=== PATIENT | female | born 1955 | race Asian ===

== ENCOUNTER 2018-03-21 11:04 | Observation (INO) | payer MEDICAID, SELFPAY ==
[2018-03-21] VITALS (31 sets, daily range): BP systolic 94–119; BP diastolic 59–71; PULSE 46–76; RESP 7–26; TEMP 36.4–36.8; O2SAT 96–99
--- NOTE | 2018-03-21 11:14 | NUR.NOTE ---
pt has left sided chest pain radiating to left arm 5/10 pain pt describes as stabbing pain and nausea started at 0915
--- NOTE | 2018-03-21 11:19 | W.ED.GENAD ---
Discharge Plan Disposition Patient Disposition: HOME Condition: Good Discharge Details Chief Complaint: Chest Pain Clinical Impression: Chest pain Reason For Visit: CHEST PAIN Admit Date/Time: 03/21/18 17:53 Admit Provider: Luis Gruber Attending Provider: Nannette Palumbo Primary Care Provider: Bertha Hernandez ED Provider: Dewey Lopez Discharge Data Discharge Date/Time-TO BE ENTERED AT DEPARTURE: 03/21/18 19:05 Medical Decision Making <Janette Lopez MD - Last Filed: 04/04/18 08:37> Christine Snow is a 63-year-old woman with history of prediabetes and borderline hyperlipidemia presenting to the emergency department complaining of chest pain that began earlier today associated with nausea, left arm pain, now resolved. Pain occurred while she was cooking in her kitchen, but she did not feel that she was exerting herself at the time. On exam patient is very well and nontoxic appearing. Benign cardiopulmonary exam. Concern for ACS versus GERD versus muscular skeletal versus PE versus other. Exam/history of sepsis, acute aortic pathology. Plan for EKG, chest x-ray, screening labs, telemetry. Will monitor and reassess. Plan for repeat EKG and repeat troponin if initial workup negative. D-dimer elevated. Troponin negative. No clear etiology of pain at this time, plan for CT of the chest. Patient signed out to Dr. Dewey Lopez at time of shift change with repeat EKG, repeat troponin pending. Medical Records Medical records reviewed: Yes I reviewed the patient's medical records. Imaging Data Radiologic Study: Attestation: I personally reviewed and interpreted this imaging study as follows: Radiologist's impression: PA AND LATERAL CHEST: The cardiac and mediastinal contours have a normal appearance. The lungs are well inflated and clear. No infiltrate or effusion is seen. IMPRESSION: Negative chest xray. Lab Data Lab results reviewed: Yes I reviewed the patient's lab results. ECG Data Attestation: I personally reviewed and interpreted this ECG (s) as follows: Interpretation: EKG shows sinus rhythm 66, normal axis, slight T wave inversion in aVL, slight biphasic T wave V1, both changes present on prior 01/02, nondiagnostic EKG HPI <Janette Lopez MD - Last Filed: 04/04/18 08:37> General Mode of arrival: ambulatory. Date/Time Provider Initiated Documentation: 03/21/18 11:19. Limitations to Documentation: no limitations. Information obtained by: patient, RN notes reviewed and old records reviewed. HPI Narrative: Christine Snow is a 63-year-old woman without reported history of medical problems presenting to the emergency department complaining of chest pain. Patient reports that this morning she was cooking in her kitchen when she noticed pain in her left chest and left arm. Pain in her chest was stabbing, pain in her left arm began in her left wrist and moved to her left upper arm and was aching in nature, and did not otherwise radiate. Pain was not exertional or pleuritic. Did not improve with rest. SHe did have some nausea initially when pain began that has resolved. She reports that pain is subsided since being the emergency department, and she is currently not having chest pain. She reports that she took aspirin at home this morning. Did not take any other medications. Has been otherwise feeling well in her usual state of health, no recent illness. No fevers, shortness of breath, cough, vomiting, diarrhea, weakness, numbness. Has been eating and drinking as usual. Related Data Home Medications Medication Instructions Recorded Confirmed aspirin [Aspirin Low Dose] 81 mg PO DAILY #30 tab 03/21/18 Previous Rx's Medication Instructions Recorded aspirin [Aspirin Low Dose] 81 mg PO DAILY #30 tab 03/21/18 Allergies Allergy/AdvReac Type Severity Reaction Status Date / Time No Known Allergies Allergy Unverified 03/21/18 11:34 General Stated Complaint: Chest Pain NEREIDA: 2 Review of Systems <Janette Lopez MD - Last Filed: 04/04/18 08:37> Review of Systems Constitutional: denies fevers Eyes: denies eye pain ENT: denies facial pain, dental pain, sore throat Cardiovascular: reports chest pain, denies edema Respiratory: denies SOB, cough GI: denies abdominal pain, vomiting, diarrhea, reports nausea : denies flank pain MSK: denies back pain, neck pain, arthralgias, reports left arm pain Skin: denies rash Neuro: denies headaches, numbness, weakness PFSH <Janette Lopez MD - Last Filed: 04/04/18 08:37> Medical History Pre-diabetes (Chronic) Migraine Surgical History Biopsy of breast (~1999) Colonoscopy - IV Sedation (~2010) Family History Other Heart disease Hyperlipidemia Tuberculosis Social History number of children: 3 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 [place] Smoking and Tabacco status: Former Tobacco Use pack-years: 5 Tobacco: How many years used: 5 how long ago did patient quit smokin years History History 3 Para 3 Hx # Term Pregnancies 3 Multiple births Hx # Pregnancies Ectopic pregnancies AB induced Hx Number of Living Children AB spontaneous Exam <Janette Lopez MD - Last Filed: 04/04/18 08:37> Narrative Exam Narrative: Constitutional: well and [id number], pleasant, conversing normally HENT: head atraumatic, normocephalic normal inspection, mucous membranes moist Eyes: conjunctiva normal, sclera normal, pupils 3mm b/l Neck: no stridor, normal ROM, trachea midline Chest: normal inspection Resp: normal work of breathing, LCTAB Cardio: normal rate, normal rhythm, no murmur appreciated Back: normal inspection, no rash Skin: warm, dry, normal color, no rash Neuro: alert, not altered, grossly non-focal, normal tone Ext: no edema Psych: normal mood, normal affect, normal behavior Course <Janette Lopez MD - Last Filed: 04/04/18 08:37> Vital Signs Temperature 36.4 C L 03/21/18 11:16 Pulse 61 03/21/18 11:16 Respiratory Rate 14 03/21/18 11:16 Blood Pressure 119/70 03/21/18 11:16 Pulse Oximetry 98 03/21/18 11:16 Temperature 36.4 C L 03/21/18 11:16 Temperature Source Skin 03/21/18 11:16 Pulse 61 03/21/18 11:16 Respiratory Rate 14 03/21/18 11:16 Blood Pressure 119/70 03/21/18 11:16 Blood Pressure Position Sitting 03/21/18 11:16 Pulse Oximetry 98 02/04/19 11:16 Oxygen Delivery Method Room Air 03/21/18 11:16 Oxygen Flow Rate 0 03/21/18 11:16 Pain Level 5 03/21/18 11:16 Sign Out <Janette Lopez MD - Last Filed: 04/04/18 08:37> Sign Out Data: Sign Out Comment: Patient signed out to Dr. Lopez at time of shift change with repeat troponin, repeat EKG pending Last updated by Janette Lopez MD at 03/21/18 16:08 Post-Handoff Eval: -- CT chest intpereted by radiology: IMPRESSION: Negative chest CTA. No evidence of pulmonary emboli or other acute abnormality. 17:00 -- repeat trop at 3 hours neg and unchanged. 17:55 -- repeat ecg reviewed and interpreted by me: Concern for st changes noted V1 through V3 compared to prior. Patient reassessed and remains pain free. Plan to admit for serial troponin stress testing. I called and spoke with hospitalist who will admit patient - care transitioned to hospitalist. Disposition: inpatient observation Diagnosis: chest pain, ecg changes
[2018-03-21 11:52] LABS: Abs Immature Grans 0.01 k/cumm (0.0-0.09); Absolute Basophil Count 0.05 k/cumm (0.0-0.2); Absolute Eosinophil Count 0.11 k/cumm (0.0-0.7); Absolute Lymphocyte Count 1.64 k/cumm (1.2-3.4); Absolute Monocyte Count 0.32 k/cumm (0.11-0.7); Absolute Neutrophil Count 2.33 k/cumm (1.2-6.7); Basophils % 1.1; Eosinophils % 2.5; HGB 13.7 g/dL (12.0-15.5); Immature Grans % 0.2; Lymphocytes % 36.8; Mean Corp. HGB Concentration 33.4 g/dL (32.0-36.0); Mean Corpuscular Volume 89.7 fL (80-95); Monocytes % 7.2; Neutrophils % 52.2; Platelet Count 239 x1000/uL (130-400); RBC 4.57 m/cumm (4.00-5.20); RBC Distribution Width 12.2 % (11.7-14.6); White Blood Cell Count 4.46 k/cumm (4.4-10.8)
--- NOTE | 2018-03-21 12:08 | DI.RAD_ITS ---
SYMPTOM/DIAGNOSIS; CHEST PAIN PA AND LATERAL CHEST: Comparison is made with 13 Jan 2016. The heart size is normal. The aorta is mildly tortuous but normal in diameter. The lungs are well inflated and clear. No infiltrate or effusion is seen. There is no evidence of pneumothorax. IMPRESSION: Negative chest x-ray.
[2018-03-21 12:12] LABS: ALT 16 U/L (12-78); AST 18 U/L (15-37); Alkaline Phosphatase 68 U/L (46-116); Anion Gap 5.3 mmol/L (3-11); BUN 16 mg/dL (7-18); Bilirubin, Total 0.8 mg/dL (0.2-1.0); CO2 33.7 mmol/L (21.0-32.0); CREATININE 0.78 mg/dL (0.55-1.02); Calcium 9.5 mg/dL (8.5-10.1); Chloride 105 mmol/L (98-107); Glucose 87 mg/dL (70-100); Potassium 4.3 mmol/L (3.5-5.1); Sodium 144 mmol/L (136-145); Total Protein 7.9 g/dL (6.4-8.2)
[2018-03-21 12:36] LABS: D-Dimer 539 ng/mlFEU (<500)
[2018-03-21 13:00] LABS: Troponin I < 0.02 ng/mL (0.00-0.06)
--- NOTE | 2018-03-21 13:58 | DI.CT_ITS ---
SYMPTOM/DIAGNOSIS: CHEST PAIN PE CHEST CT: CT angiography was performed with multi slice acquisition and multi planar and 3D reconstruction. Comparison is made with plain films of the same day. The lungs show dependent changes. The aorta and pulmonary arteries are well opacified with IV contrast and no pulmonary emboli are seen. There is no evidence of aortic dissection. The visualized portions of the upper abdomen are unremarkable. IMPRESSION: Negative chest CTA. No evidence of pulmonary emboli or other acute abnormality.
[2018-03-21] MEDS: Omnipaque 350 MG/ML 100 ML BTL IJ (14:37)
[2018-03-21 16:22] LABS: Troponin I < 0.02 ng/mL (0.00-0.06)
[2018-03-21 20:26] LABS: Troponin I < 0.02 ng/mL (0.00-0.06)
[2018-03-21 21:00] LABS: ESR 9 MM/HR (0-30)
--- NOTE | 2018-03-21 21:25 | HPE_ITS ---
Date of service: 03/21/18 Time of Service: 21:23 Assessment and Plan (1) Chest pain: Current visit: Yes Status: Acute Atypical in nature and there is no associated with any exertional activity and no associated dyspnea. Serial troponins have been negative. EKG has some nonspecific ST-T wave changes. ESR came back normal. I suspect her chest pain is probably musculoskeletal in nature but because of multiple coronary risk factors she should have a follow-up stress gated exercise treadmill test with MPI imaging. 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 Says the work is been especially stressful and that she has to do more than cooking she often has to wash up dishes and take out trash and recyclables and do heavy lifting. She presented to the emergency department after developing left-sided chest discomfort and left arm heaviness and left shoulder and neck pain yesterday that recurred today while she was sitting and eating breakfast. There was no associated dyspnea. Today's episode occurred while she was eating breakfast and sitting at the table. She described as a heaviness in her left arm and an aching in the left side of her chest. There is no radiation up into her neck or jaw or into her right arm and there is no associated dyspnea. This morning's episode lasted for about 45 minutes beginning around 9:15 AM. When it subsided she called her primary care physician's office to make an appointment but when the discomfort recurred around 11 AM she decided to present to the emergency department. While in the emergency department she had multiple EKGs and serial troponin levels, CBC, CMP, d-dimer. Her d-dimer was within her age acceptable limit of 539. Her CMP and CBC were unremarkable. Her first 2 troponin levels were normal at less than 0.02 and since that time we have obtained a third troponin level that was also normal at less than 0.02. Initial EKG taken 11:22 AM showed normal sinus rhythm rate of 66 bpm. She has nonspecific T wave inversion in limb lead aVL but otherwise normal ECG. Repeat ECG was taken at 1737 this evening and again shows nonspecific T wave abnormality in limb lead aVL. However in the anterior precordial leads there is some slight J-point elevation and coving of the ST segment. T wave appears to be biphasic in V2 and V3. Although the patient has remained free of any chest pain Dr. Dewey Lopez advised the patient to be hospitalized overnight for a third troponin as well as to be set up for stress MPI. Patient has a previous history of chest pain that was worked up in December 2015 with a gated exercise treadmill stress test in which she achieved maximal heart rate of 152 bpm and had a normal resting blood pressure and normal blood pressure response to stress achieving 10.1 METS and showed no ischemic EKG changes. Her coronary risk factors include a family history in her father who had an IA at the age of 65 and had coronary stents but later from Alzheimer's dementia. She reports that she has been told she has prediabetes and borderline hypercholesterolemia. She does not have hypertension. She is a former smoker but quit 30 years ago after 5-year history of smoking. She is currently pain-free. 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 [place] Smoking/Tobacco Use Status: Former Tobacco Use pack-years: 5 how long ago did patient quit smokin years History History 3 Para 3 Hx # Term Pregnancies 3 Multiple births Hx # Pregnancies Ectopic pregnancies AB induced Hx Number of Living Children AB spontaneous Meds Home Medications Medication Instructions Recorded Confirmed Type aspirin [Aspirin Low Dose] 81 mg PO DAILY #30 tab 03/21/18 Rx Allergies Allergy/AdvReac Type Severity Reaction Status Date / Time No Known Allergies Allergy Unverified 03/21/18 11:34 Exam Const General: cooperative, healthy appearing, comfortable, no acute distress and well groomed Nutritional Appearance: thin Orientation: alert, awake and oriented x3 HENMT Head: normal to inspection, no palpable skull fracture, normocephalic and atraumatic Ears: hearing grossly normal bilaterally General nose exam: external nose normal Face and sinus: normal facial exam Mouth: oral mucosae normal, lip normal, tongue normal and oropharynx normal Teeth and gingiva: dentition normal Throat: posterior oropharynx normal Eyes General: appearance normal, both eyes and all related structures Visual Knight: normal visual knight by confrontation Alignment and Position: alignment normal Periorbital: periorbital findings normal Eyelids: eyelids normal Conjunctivae: conjunctivae normal Sclera: sclerae normal Cornea: corneas normal Pupils: PERRL EOM: EOM intact bilaterally Direct ophthalmoscopy: normal light reflex Neck Neck: normal visual inspection, full ROM, no lymphadenopathy and trachea midline Thyroid: thyroid normal Carotids: normal carotid upstroke Lymphatic: no lymphadenopathy noted Chest Chest: normal inspection of the chest and normal palpation of entire chest wall Resp Effort & Inspection: normal respiratory effort and able to speak in complete sentences Auscultation: clear to auscultation bilaterally Cardio Jugular venous pressure: no JVD Palpation: normal PMI Rate: regular rate Rhythm: regular rhythm Heart Sounds: S1 normal, S2 normal, normal, physiologic split S2 and murmur systolic early, soft and I/ Pulses: normal peripheral pulses GI Inspection: normal to inspection Palpation: soft, no hepatosplenomegaly and nontender Percussion: normal to percussion Auscultation: normal bowel sounds Back/Spine/Pelvis Back: no CVA tenderness Cervical Spine: normal cervical lordosis Thoracic/Lumbar Spine: thoracic and lumbar spine normal to inspection Skin General skin exam: no rashes or lesions noted Neuro General: alert, awake, oriented x3, moves all extremities and no focal motor deficits Cognition: normal cognition Speech: speech normal Motor: muscle tone normal throughout, strength 5/5 throughout and no movement abnormalities noted Sensory Exam: no sensory deficits noted Extrem General: normal to inspection, full ROM, normal capillary refill, no joint enlargement and no clubbing, cyanosis or edema Psych Appearance: grossly normal and well kempt Mental Status: mental status grossly normal Speech and Movement: speech and movement normal Mood: congruent mood Affect: normal affect Attitude: cooperative Thought Process: normal Thought Content: normal Insight: insight good Judgment: judgment good Results Imaging CT scan - chest: report reviewed (IMPRESSION: Negative chest CTA. No evidence of pulmonary emboli or other acute abnormality. [id number]: Total DLP = 0.00 mGy-cm Ordered By: Janette Lopez M.D. CC: Dictated By: Roro Nunez M.D. ) Labs : 03/21/18 11:30 03/21/18 11:30 Laboratory Results - last 24 hr 03/21/18 03/21/18 03/21/18 11:30 11:30 11:30 WBC 4.46 RBC 4.57 Hgb 13.7 Hct 41.0 MCV 89.7 MCH 30.0 MCHC 33.4 RDW 12.2 Plt Count 239 MPV 11.0 Immature Gran % 0.2 Neutrophils % 52.2 Lymphocytes % 36.8 Monocytes % 7.2 Eosinophils % 2.5 Basophils % 1.1 Absolute Neutrophils 2.33 Absolute Lymphocytes 1.64 Absolute Monocytes 0.32 Absolute Eosinophils 0.11 Absolute Basophils 0.05 ESR D-Dimer 539 H Sodium 144 Potassium 4.3 Chloride 105 Carbon Dioxide 33.7 H Anion Gap 5.3 BUN 16 Creatinine 0.78 Estimated GFR/1.73 m2 >= 60.00 Glucose 87 Calcium 9.5 Total Bilirubin 0.8 AST 18 ALT 16 Alkaline Phosphatase 68 Troponin I < 0.02 Total Protein 7.9 Albumin 4.0 03/21/18 03/21/18 03/21/18 15:47 20:00 20:00 WBC RBC Hgb Hct MCV MCH MCHC RDW Plt Count MPV Immature Gran % Neutrophils % Lymphocytes % Monocytes % Eosinophils % Basophils % Absolute Neutrophils Absolute Lymphocytes Absolute Monocytes Absolute Eosinophils Absolute Basophils ESR 9 D-Dimer Sodium Potassium Chloride Carbon Dioxide Anion Gap BUN Creatinine Estimated GFR/1.73 m2 Glucose Calcium Total Bilirubin AST ALT Alkaline Phosphatase Troponin I < 0.02 < 0.02 Total Protein Albumin Last Vital Signs Temp 36.8 C 03/21/18 19:14 Pulse 65 03/21/18 19:50 Resp 15 03/21/18 19:14 BP 116/71 03/21/18 19:14 Pulse Ox 98 03/21/18 19:14
[2018-03-22] VITALS (16 sets, daily range): BP systolic 86–107; BP diastolic 54–71; PULSE 52–76; RESP 16–18; TEMP 36–36.9; O2SAT 96–98
[2018-03-22 07:37] LABS: Cholesterol 219 mg/dL (50-200); HDL Cholesterol 100 mg/dL (40-60); LDL CHOLESTEROL 103 mg/dL (<100); Triglyceride 60 mg/dL (30-150)
--- NOTE | 2018-03-22 08:00 | PDOC.CMPRO ---
Care Management Progress Note 2/5-Stress test ordered from the emergency department. Patient is admitted. This CM notified Leatha, inpatient CM of the above.
[2018-03-22 08:30] LABS: Hemoglobin A1C 5.9 % (4.5-6.2)
--- NOTE | 2018-03-22 08:52 | PHARADMIT ---
Addendum entered by Dario Smith III 03/23/18 12:24: Pharmacy Note Subjective Objective VS-OK Lytes, SCr-OK , Plts-342 No BM Assessment Lovenox for DVT proph, Plan Stress test today, may go home after, if all checks out OK Original Note: Admission Pharmacy Clinical Review chest pain Code Status Full Code Current Weight 51.6 kg Renally Cleared and Narrow Therapeutic Index Meds Crcl ~51.02 mL/min current meds okay QTc Value / Action Taken QTc 445 BP Control, Fever BP 101/59 afebrile Electrolytes reviewed within normal limits DVT Prophylaxis none Opiate Usage / Scheduled Bowel Regimen Ordered no/prn Plt/SCr for Heparin / Enoxaparin plt 239 SCr 0.78 INR for Warfarin n/a H/H stable, WBC/Bands h/h 13.7/41.0 wbc 4.46 Antibiotic appropriateness n/a Cultures and Sensitivities n/a Surgical ABX d/c within 24 hr n/a DM control / Insulin Dosing BG 87 n/a Heart Failure (Check EF%) (ALLY's, B-Block, Diuretics) none IV to PO Switch n/a Home Meds Reviewed yes Home Meds Not Ordered aspirin Comments MPI tomorrow cardiology consult
--- NOTE | 2018-03-22 09:00 | MERGE_ITS ---
*[facility]* *[facility]* [address] [place] [address] Date of study: 03/22/2018 Transthoracic Echocardiography M-mode, complete 2D, complete spectral Doppler, and color Doppler *STUDY CONCLUSIONS* Summary: 1. Left ventricle: The cavity size was normal. Wall thickness was normal. Systolic function was normal. The estimated ejection fraction was 60-65%. Wall motion was normal; there were no regional wall motion abnormalities. 2. Right ventricle: The cavity size was normal. Systolic function was normal. 3. Inferior vena cava: The vessel was patent and normal in size. The respirophasic diameter changes were in the normal range (greater than or equal to 50%), consistent with normal central venous pressure. *PATIENT PRESENTATION* Height: 149.9cm ((59in) ) S/D Pressure: 101 / 59 Weight: 44.9kg ((98.8lb) ) BSA: 1.37m^2 Test start time: 09:10 AM. Test stop time: 10:00 AM. PERFORMING Unknown PERFORMING [facility] ORDERING Manpreet Gruber REFERRING Manpreet Gruber CONSULTING Bertha Hernandez DATA TRANSCRIBER RT Jamin Verde)(YUDITH)MORRIS *PROCEDURE DATA* Procedure information: The patient was identified by two identifiers. This study was interpreted by [facility]. Pertinent images and digital data are archived for permanent storage and are available for subsequent review. No prior study was available for comparison. Study status: Routine. Transthoracic echocardiography. M-mode, complete 2D, complete spectral Doppler, and color Doppler. A Transthoracic Echocardiogram was performed. Scanning was performed from the parasternal, apical, subcostal, and suprasternal notch acoustic windows. Images were obtained using an [id number] cardiac ultrasound machine. Image quality was adequate. Study completion: The patient tolerated the procedure well. There were no complications. History: PMH: Chest pain *CARDIAC ANATOMY* Left ventricle: The cavity size was normal. Wall thickness was normal. Systolic function was normal. The estimated ejection fraction was 60-65%. Wall motion was normal; there were no regional wall motion abnormalities. Aortic valve: Trileaflet; mildly thickened leaflets. Mobility was not restricted. Doppler: Transvalvular velocity was within the normal range. There was no stenosis. There was no significant regurgitation. VTI ratio of LVOT to aortic valve: 0.85. Valve area (VTI): 2.1cm^2. Indexed valve area (VTI): 1.6cm^2/m^2. Peak velocity ratio of LVOT to aortic valve: 0.76. Valve area (Vmax): 1.9cm^2. Indexed valve area (Vmax): 1.4cm^2/m^2. Mean velocity ratio of LVOT to aortic valve: 0.81. Valve area (Vmean): 2cm^2. Indexed valve area (Vmean): 1.5cm^2/m^2. Mean gradient (S): 4.5mm Hg. Peak gradient (S): 7.8mm Hg. Aorta: Aortic root: The aortic root was normal in size. Ascending aorta: The ascending aorta was normal in size. Mitral valve: Mildly thickened leaflets. Mobility was not restricted. Doppler: Transvalvular velocity was within the normal range. There was no evidence for stenosis. There was trivial regurgitation. Valve area by pressure half-time: 4.1cm^2. Indexed valve area by pressure half-time: 3cm^2/m^2. Peak gradient (D): 2.6mm Hg. Left atrium: The atrium was normal in size. Right ventricle: The cavity size was normal. Systolic function was normal. Pulmonic valve: The pulmonary valve appears to be grossly normal. Doppler: Transvalvular velocity was within the normal range. There was no evidence for stenosis. There was no significant regurgitation. Tricuspid valve: Structurally normal valve. Doppler: Transvalvular velocity was within the normal range. There was no evidence for stenosis. There was mild regurgitation. Pulmonary artery: The main pulmonary artery was normal-sized. Pulmonary systolic pressure was within the normal range, in the range of 20mm Hg to 25mm Hg. Right atrium: The atrium was normal in size. Pericardium: There was no pericardial effusion. Systemic veins: Inferior vena cava: Well visualized. The vessel was patent and normal in size. The respirophasic diameter changes were in the normal range (greater than or equal to 50%), consistent with normal central venous pressure. Baseline ECG: Normal sinus rhythm. Measurements Left ventricle Value Reference LV ID, ED, PLAX 3.9 cm 3.5 - 6.0 LV ID, ES, PLAX 2.7 cm 2.1 - 4.0 LV PW thickness, ED, PLAX 0.7 cm LV end-diastolic volume, 1-p A2C 46 ml LV ejection fraction, 1-p A2C 62 % LV end-diastolic volume, 1-p A4C 36 ml LV ejection fraction, 1-p A4C 63 % LV e', lateral 0.101 m/sec LV E/e', lateral 8 LV e', medial 0.081 m/sec LV E/e', medial 10 LV e', average 0.091 m/sec LV E/e', average 9 Ventricular septum Value Reference IVS thickness, ED, PLAX 0.9 cm LVOT Value Reference LVOT ID, A-P 1.8 cm LVOT area 2.5 cm^2 LVOT peak velocity, S 1.06 m/sec LVOT mean velocity, S 0.83 m/sec LVOT VTI, S 25.6 cm LVOT peak gradient, S 4.5 mm Hg LVOT mean gradient, S 2.9 mm Hg Stroke volume (SV), LVOT DP 64 ml Stroke index (SV/bsa), LVOT DP 47 ml/m^2 Aortic valve Value Reference Aortic valve peak velocity, S 1.4 m/sec Aortic valve mean velocity, S 1.02 m/sec Aortic valve VTI, S 30.0 cm Aortic mean gradient, S 4.5 mm Hg Aortic peak gradient, S 7.8 mm Hg VTI ratio, LVOT/AV 0.85 Aortic valve area, VTI 2.1 cm^2 Velocity ratio, peak, LVOT/AV 0.76 Aortic valve area, peak velocity 1.9 cm^2 Velocity ratio, mean, LVOT/AV 0.81 Aortic valve area, mean velocity 2 cm^2 Aortic valve area/bsa, mean velocity 1.5 cm^2/m^2 Aorta Value Reference Aortic root ID, ED 2.7 cm Ascending aorta ID, A-P, S 3.0 cm Left atrium Value Reference LA ID, A-P, ES 2.5 cm LA ID/bsa, A-P 1.8 cm/m^2 <=2.2 LA area, ES, A4C 14.4 cm^2 8.8 - 23.4 LA area, ES, A2C 9 cm^2 LA volume/bsa, ES, 1-p A4C 30 ml/m^2 LA volume, ES, 2-p 24 ml LA volume/bsa, ES, 2-p 18 ml/m^2 LA/aortic root ratio 0.92 Mitral valve Value Reference Mitral E-wave peak velocity 0.8 m/sec Mitral A-wave peak velocity 0.72 m/sec Mitral deceleration time 186 ms 150 - 230 Mitral pressure half-time 54 ms Mitral peak gradient, D 2.6 mm Hg Mitral E/A ratio, peak 1.12 Mitral valve area, PHT, DP 4.1 cm^2 Pulmonary veins Value Reference Pulmonary vein peak velocity, S 0.72 m/sec Pulmonary vein peak velocity, D 0.5 m/sec Pulmonary vein velocity ratio, peak, 1.43 S/D Pulmonary vein A-wave reversal peak 0.79 m/sec velocity Pulmonary vein A-wave reversal 204 ms duration Tricuspid valve Value Reference Tricuspid regurg peak velocity 2.2 m/sec Tricuspid peak RV-RA gradient 20.2 mm Hg Right atrium Value Reference RA area, ES, A4C 11 cm^2 8.3 - 19.5 Legend: (L) and (H) casa values outside specified reference range. I have personally reviewed the images and have reviewed and edited the reported findings. Electronically signed by Chrisitna Guy 03/22/2018 10:42
[2018-03-22 10:51] LABS: Anion Gap 7.8 mmol/L (3-11); BUN 20 mg/dL (7-18); CO2 28.2 mmol/L (21.0-32.0); CREATININE 0.69 mg/dL (0.55-1.02); Calcium 9.1 mg/dL (8.5-10.1); Chloride 106 mmol/L (98-107); Glucose 92 mg/dL (70-100); Magnesium 2.3 mg/dL (1.8-2.4); Potassium 4.3 mmol/L (3.5-5.1); Sodium 142 mmol/L (136-145)
--- NOTE | 2018-03-22 11:11 | INITIAL_ITS ---
- If Service Date Differs Date of service: 03/22/18 Time of Service: 11:11 Care Management Initial Assess REASON FOR HOSPITALIZATION:: Chest Pain PAST MEDICAL HISTORY/PAST SURGICAL HISTORY:: Chest pain, prediabetes PREVIOUS FUNCTIONAL STATUS/SOCIAL/FAMILY SUPPORTS:: Christine lives in [place], [place] she has 3 children two that live local and one that lives in [place]. 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 She is independent at baseline with ADL's and transportation. CURRENT FUNCTIONAL STATUS:: Christine makes good eye contact she is engaged with CM during assessment. She states she has been coming down with URI symptoms over the last few days, then developed the chest pain. She states she is no longer having chest pain and would like to go home so that she can work tomorrow. She is scheduled for an MPI CM to identify time for test. Patient states she needs to work tomorrow afternoon ADVANCE DIRECTIVES:: None on file at [facility] Has patient been provided with information about the portal?: Yes Did the patient sign up for the portal?: No CODE STATUS:: Full Code INSURANCE COVERAGE / FINANCIAL ISSUES:: Medicaid CURRENT HOME/COMMUNITY SERVICES/EQUIPMENT:: None at this time PRIMARY CARE PHYSICIAN:: Bertha Hernandez [facility] POTENTIAL DISCHARGE NEEDS:: Follow-up appointment scheduled with primary care, and cardiology if appropriate. PATIENT/FAMILY EDUCATION NEEDS:: Discharge education, limitations, follow-up plan of care, ask me 3 and self-management. ANTICIPATED BARRIERS TO DISCHARGE:: None identified at this time. TRANSPORTATION:: Via family at time of discharge. PLAN:: Christine is awaiting MPI in the morning. Anticipate she will be discharged home with no services when medically ready. Plan to follow up with primary care and cardiology if appropriate.
--- NOTE | 2018-03-22 13:42 | NUR.NOTE ---
Nursing Note: 1335: pt reporting pain in JOSE M similar to pain in arm yesterday which brought her to the ER. pt denies cp/p. see vs for intervention information
[2018-03-22] MEDS: Normal Saline 500 ML IV (14:40)
[2018-03-22] MEDS: Normal Saline Flush 10 ML SYR IVP (15:00)
--- NOTE | 2018-03-22 17:39 | W.PM.PROGNOT ---
Date of Service Date of service: 03/22/18 Time of Service: 15:00 Assessment and Plan (1) Chest pain: Current visit: Yes Status: Acute NPO for NST in am post-cardiology consult. (2) Pre-diabetes: Current visit: No Status: Chronic Consider metformin (3) Discharge planning issues: Current visit: Yes Status: Acute Full code Anticipated discharge home tomorrow if stress test normal. (4) DVT prophylaxis: Current visit: Yes Status: Acute Lovenox SC Subjective Interval history since last seen: Patient complained of a LUE ache/pain, from her L shoulder down her arm, which has improved over the last couple of hours, but is still there. She does not think that the nitroglycerin made it any better. Denies dizziness, actual chest pain today, shortness of breath, or nausea. Denies shoulder and neck pain. Denies numbness and tingling. C/o LUE heaviness. Exam Narrative Exam Narrative: General: very pleasant middle aged female, sitting up in bed, mildly anxious HEENT: EOMI, MMM Heart: RRR, no m/r/g Lungs: CTAB GI: abdomen soft, nontender, nondistended Extremities: no edema, clubbing or cyanosis; LUE/shoulder or neck are not TTP. Objective Objective Clinical Data: Abnormal lab results 03/22/18 03/22/18 Range/Units 06:21 06:21 BUN 20 H (7-18) mg/dL Total Cholesterol 219 H (50-200) mg/dL LDL Cholesterol Direct 103 H (<100) mg/dL HDL Cholesterol 100 H (40-60) mg/dL Vital Signs Temperature 36.5 C 03/22/18 15:30 Temperature Source Tympanic 03/22/18 15:30 Pulse 66 03/22/18 15:30 Pulse Rhythm Regular 03/22/18 16:00 Pulse 61 03/21/18 15:50 Respiratory Rate 18 03/22/18 15:30 Respiratory Effort Non-Labored 03/22/18 16:00 Respiratory Depth Normal 03/22/18 16:00 Respiratory Pattern Normal 03/22/18 16:00 Blood Pressure 100/70 03/22/18 15:30 Blood Pressure Mean 78 03/21/18 15:47 Blood Pressure Position Sitting 03/21/18 11:16 Pulse Oximetry 98 03/22/18 15:30 Oxygen Delivery Method Room Air 03/22/18 15:30 Oxygen Flow Rate 0 03/22/18 15:30 Fraction of Inspired Oxygen (FIO2) 3 03/22/18 15:30 Pain Level 5 03/22/18 14:05 Comment 03/22/18 15:30 Intake & Output 03/21/18 03/22/18 03/22/18 23:59 11:59 23:59 Intake Total 350 / 350 640 / 880 240 / 880 Output Total 500 / 500 1650 / 1650 Balance -150 / -150 -1010 / -770 240 / -770 Weight 45.359 kg 51.6 kg Intake: Oral 350 / 350 640 / 880 240 / 880 Output: Urine 500 / 500 1650 / 1650 Other: Urine Color Light Kaylie Yellow Urine Appearance Clear Clear Clear Urine Odor Normal Voiding Methods Toilet Toilet Laboratory Results WBC 4.46 k/cumm (4.4-10.8) 03/21/18 11:30 RBC 4.57 m/cumm (4.00-5.20) 03/21/18 11:30 Hgb 13.7 g/dL (12.0-15.5) 03/21/18 11:30 Hct 41.0 % (36.0-46.0) 03/21/18 11:30 MCV 89.7 fL (80-95) 03/21/18 11:30 MCH 30.0 pg (27.0-33.0) 03/21/18 11:30 MCHC 33.4 g/dL (32.0-36.0) 03/21/18 11:30 RDW 12.2 % (11.7-14.6) 03/21/18 11:30 Plt Count 239 x1000/uL (130-400) 03/21/18 11:30 MPV 11.0 fL (8.0-11.0) 03/21/18 11:30 Immature Gran % 0.2 03/21/18 11:30 Neutrophils % 52.2 03/21/18 11:30 Lymphocytes % 36.8 03/21/18 11:30 Monocytes % 7.2 03/21/18 11:30 Eosinophils % 2.5 03/21/18 11:30 Basophils % 1.1 03/21/18 11:30 Absolute Neutrophils 2.33 k/cumm (1.2-6.7) 03/21/18 11:30 Absolute Lymphocytes 1.64 k/cumm (1.2-3.4) 03/21/18 11:30 Absolute Monocytes 0.32 k/cumm (0.11-0.7) 03/21/18 11:30 Absolute Eosinophils 0.11 k/cumm (0.0-0.7) 03/21/18 11:30 Absolute Basophils 0.05 k/cumm (0.0-0.2) 03/21/18 11:30 ESR 9 MM/HR (0-30) 03/21/18 20:00 D-Dimer 539 ng/mlFEU (<500) H 03/21/18 11:30 Sodium 142 mmol/L (136-145) 03/22/18 06:21 Potassium 4.3 mmol/L (3.5-5.1) 03/22/18 06:21 Chloride 106 mmol/L (98-107) 03/22/18 06:21 Carbon Dioxide 28.2 mmol/L (21.0-32.0) 03/22/18 06:21 Anion Gap 7.8 mmol/L (3-11) 03/22/18 06:21 BUN 20 mg/dL (7-18) H 03/22/18 06:21 Creatinine 0.69 mg/dL (0.55-1.02) 03/22/18 06:21 Estimated GFR/1.73 m2 >= 60.00 (mL/min/1.73m2) 03/22/18 06:21 Glucose 92 mg/dL (70-100) 03/22/18 06:21 Hemoglobin A1c 5.9 % (4.5-6.2) 03/22/18 06:21 Calcium 9.1 mg/dL (8.5-10.1) 03/22/18 06:21 Magnesium 2.3 mg/dL (1.8-2.4) 03/22/18 06:21 Total Bilirubin 0.8 mg/dL (0.2-1.0) 03/21/18 11:30 AST 18 U/L (15-37) 03/21/18 11:30 ALT 16 U/L (12-78) 03/21/18 11:30 Alkaline Phosphatase 68 U/L (46-116) 03/21/18 11:30 Troponin I < 0.02 ng/mL (0.00-0.06) 03/21/18 20:00 Total Protein 7.9 g/dL (6.4-8.2) 03/21/18 11:30 Albumin 4.0 g/dL (3.4-5.0) 03/21/18 11:30 Triglycerides 60 mg/dL (30-150) 03/22/18 06:21 Total Cholesterol 219 mg/dL (50-200) H 03/22/18 06:21 LDL Cholesterol Direct 103 mg/dL (<100) H 03/22/18 06:21 HDL Cholesterol 100 mg/dL (40-60) H 03/22/18 06:21 TSH 1.10 uIU/mL (0.358-3.74) 03/22/18 06:21
[2018-03-22] MEDS: Enoxaparin 40 MG/0.4 ML SYR SC (18:42)
[2018-03-23] VITALS (7 sets, daily range): BP systolic 85–103; BP diastolic 51–75; PULSE 52–77; RESP 16–18; TEMP 36.5–37.1; O2SAT 96–97
[2018-03-23 07:18] LABS: Platelet Count 342 x1000/uL (130-400)
[2018-03-23 07:51] LABS: Anion Gap 6.2 mmol/L (3-11); BUN 21 mg/dL (7-18); CO2 29.8 mmol/L (21.0-32.0); CREATININE 0.71 mg/dL (0.55-1.02); Calcium 8.6 mg/dL (8.5-10.1); Chloride 107 mmol/L (98-107); Glucose 84 mg/dL (70-100); Magnesium 2.2 mg/dL (1.8-2.4); Potassium 3.8 mmol/L (3.5-5.1); Sodium 143 mmol/L (136-145)
--- NOTE | 2018-03-23 08:45 | MERGEMPI_ITS ---
*[facility]* *[facility]* [address] [place] [address] Myocardial Perfusion Imaging - SPECT Mahendra protocol Date of study: 03/23/2018 *PATIENT PRESENTATION* Height: 149.9cm (59in) Blood Pressure: Weight: 45.5kg (100lb) BSA: 1.38m^2 Referring physician: Manpreet Gruber Ordering physician: Manpreet Gruber Impressions: Normal myocardial perfusion and contraction after maximal exercise. Summary: 1. Myocardial perfusion imaging: No myocardial perfusion defects noted. 2. The calculated left ventricular ejection fraction after stress: > 75%. LV global systolic function is normal. No left ventricular regional motion abnormality. 3. Stress ECG conclusions: The stress ECG is negative. Butler treadmill score: 11. This score predicts a low risk of cardiac events. 4. Stress: The target heart rate was achieved. The heart rate response to stress is normal. There is a normal resting blood pressure with a blunted response to stress. Exercise capacity is above normal for age. 5. Treadmill exercise testing was performed using the Mahendra protocol. The patient exercised for 11 min, to protocol stage 3, to a maximal work rate of 8.9mets. Exercise was terminated due to fatigue. Indication: R07.9. History: REASON FOR TESTING: PATIENT PRESENTED TO THE ED 2/4/19 WITH LEFT SIDED CHEST ACHING (6/10) AND LEFT ARM HEAVINESS WITH BILATERAL NECK AND SHOULDER PAIN. HER TROPONINS WERE NEGATIVE. TODAY SHE REPORTS SLIGHT HEAVINESS OF HER LEFT ARM. SHE DENIES CHEST PAIN/PRESSURE. SMOKING STATUS: QUIT 1984. SMOKED APPROXIMATELY 5 CIGARETTES PER DAY FOR 5 YEARS. EXERCISE ROUTINE: DAILY ADLS. Risk factors: Family history of coronary artery disease. Dyslipidemia. ALLERGIES: NO KNOWN ALLERGIES. MEDICATIONS: NONE. Imaging Technique: Protocol: Mahendra protocol. Acquisition: Gated SPECT; 1 day - rest/stress. The patient was imaged in the supine position. Attenuation correction used. Isotope administration: - Rest. Tc[99m]-sestamibi. Dose: 10.3mCi. Injection time: 10:00 AM. Injection to stress time: 00:45. - Stress. Tc[99m]-sestamibi. Dose: 29mCi. Injection time: 10:55 AM. 1-2 min before end of exercise Baseline ECG: SINUS LANETTE. HR 53. T WAVE INVERSIONS IN AVL AND V1. Sinus bradycardia. Stress protocol: + +---+ + !Stage !HR !BP (mmHg) ! + +---+ + !Baseline supine !53 !110/70 (83)! + +---+ + !Baseline standing !64 !104/70 (81)! + +---+ + !Stage I; 1.7mph, 10degrees; 3 min !93 !110/64 (79)! + +---+ + !Stage II; 2.5mph, 12degrees; 3 min !118!110/80 (90)! + +---+ + !Stage III; 3.4mph, 14degrees; 3 min!138!110/80 (90)! + +---+ + !Peak stress !140! ! + +---+ + !Recovery; 1 min !119!118/68 (85)! + +---+ + !Recovery; 3 min !67 !108/64 (79)! + +---+ + !Recovery; 6 min !65 !98/64 (75) ! + +---+ + * Stress results: TREADMILL PORTION OF STRESS TEST ENDED IN 11 MINUTES 3 SECONDS DUE TO FATIGUE. PT WAS UNABLE TO SAFELY TRANSITION TO STAGE 3 EXERCISE. MAHENDRA PROTOCOL WAS MODIFIED TO ACCOMMODATE. STAGE 3, SPEED 3 MPH AT 6 MINUTES 55 SECONDS. STAGE 3, INCLINE 13% GRADE AT 8 MINUTES 32 SECONDS. STAGE 3, INCLINE 13.5% GRADE AT 8 MINUTES 55 SECONDS. STAGE 3, INCLINE 14% GRADE AT 9 MINUTES 39 SECONDS. NORMAL HEART RATE AND BLOOD PRESSURE RESPONSE TO EXERCISE. MAX HEART RATE: 140. 89 % OF TARGET HEART RATE. MET'S: 8.91. OCCASIONAL PAC'S IN RECOVERY. NO ANGINA NO SIGNIFICANT ST SEGMENT CHANGES. FUNCTIONAL CAPACITY: ABOVE AVERAGE (MODIFIED MAHENDRA). Maximal heart rate during stress was 140bpm (90% of maximal predicted heart rate). The maximal predicted heart rate was 156bpm. The target heart rate was achieved. The heart rate response to stress is normal. There is a normal resting blood pressure with a blunted response to stress. The rate-pressure product for the peak heart rate and blood pressure was 96465xx Hg/min. Exercise capacity is above normal for age. Stress ECG: The stress ECG is negative. Butler treadmill score: 11. This score predicts a low risk of cardiac events. Myocardial perfusion: Imaging information: gated. The image quality was excellent. Left ventricular size is normal. No myocardial perfusion defects noted. Ventricular Function (Wall Motion): The calculated left ventricular ejection fraction after stress: > 75%. LV global systolic function is normal. No left ventricular regional motion abnormality. Study data: Aleksandar Warner MD supervised and was readily available during the procedure. This study was interpreted by [facility]. Study status: Routine. Consent: The risks, benefits, and alternatives to the procedure were explained to the patient and informed consent was obtained. Procedure: Initial setup. A baseline ECG was recorded. Surface ECG leads and manual cuff blood pressure measurements were monitored. Heart sounds: Normal. Lung sounds: Normal. Treadmill exercise testing was performed using the Mahendra protocol. The patient exercised for 11 min, to protocol stage 3, to a maximal work rate of 8.9mets. Exercise was terminated due to fatigue. Study completion: All catheters inserted during the procedure were removed. The patient tolerated the procedure well and was discharged from the lab. Discharge: The patient left the laboratory in stable condition. Birthdate: Patient birthdate: 1955. Sex: Gender: female. Study date: Study date: 03/23/2018. Study time: 00:01 AM. Signature Documentation: - The imaging portion of this study was interpreted by [employer] Machine Operator Aleksandar Warner MD. - The Stress ECG portion of this study was interpreted by Aleksandar Warner MD. Electronically signed by Aleksandar Warner 03/23/2018 13:44
--- NOTE | 2018-03-23 13:46 | W.PM.DS.N ---
Date of service: 03/23/18 Time of Service: 13:47 DS: Diagnosis Discharge Diagnosis (1) Chest pain: Status: Acute (2) Pre-diabetes: Status: Chronic (3) Discharge planning issues: Status: Acute (4) DVT prophylaxis: Status: Acute Discharge Plan Disposition Patient Disposition: HOME Condition: Good Discharge Details Reason For Visit: CHEST PAIN Admit Date/Time: 03/21/18 17:53 Admit Provider: Lusi Gruber Attending Provider: Luis Gruber Primary Care Provider: Bertha Hernandez Hospital Course Hospital Course: Christine Snow is a 63 year old female with no significant past medical history who presented to the [facility] ED on 03/21/18 with reports of left-sided chest discomfort, left arm heaviness and left shoulder and neck pain that occurred at rest. While in the emergency department she had multiple EKGs and serial troponin levels, CBC, CMP, d-dimer. Her d-dimer was within her age acceptable limit of 539. She had a chest CTA which was negative, no evidence of pulmonary emboli or other acute abnormality. Her CMP and CBC were unremarkable. Her troponin levels were all less than 0.02. She had some nonspecific ST changes on EKG. She reported a past medical history of prediabetes and borderline hyperlipidemia. She has a family history of heart disease, her father had an OR. She had a previous exercise stress test which was normal in 2016. She was admitted to the [facility] floor for further observation, monitoring on telemetry and a stress test. She went on to have an echocardiogram which was normal with an LVEF of 60-65%, no wall motion abnormalities. She was monitored on telemetry, she was noted to be in sinus bradycardia with heart rates primarily 50s-60s, her heart rate went as low as 47 overnight. 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 She went on to have an MPI which showed normal myocardial perfusion and contraction after maximal exercise, with low risk of cardiac events. She is now discharged home, she denies chest pain/pressure, palpitations, nausea, vomiting. She is eager to get back to work. Her left arm pain has completely resolved. She will continue to take her low-dose aspirin. She will follow-up with her primary care provider as scheduled. Home Meds and New Rx's Prescriptions: New aspirin [Aspirin Low Dose] 81 mg tablet,delayed release (DR/EC) 81 mg PO DAILY Qty: 30 RF: 0 Discharge Instructions Instructions: Chest Pain (ED) Additional Instructions: Take aspirin 81 mg daily. You may return to work as tolerated. Follow-up with your primary care provider as scheduled. Take care! Referrals: Bertha Hernandez [Primary Care Provider] - 03/30/18 11:30 am () Activity:: Activity as Tolerated Equipment/Supplies:: No Equipment Needed Diet:: As Tolerated Discharge Orders Discharge Orders: Discharge Order (Routine); Ordered 03/23/18 Ordered By: Martha Nance Exam Narrative Exam Narrative: General: very pleasant middle aged female, sitting up in bed, no acute distress. HEENT: Normocephalic, atraumatic, pupils equal and round, mucous membranes moist. Heart: Heart has regular rate and rhythm, no murmur appreciated. Lungs: Respirations even and unlabored, lung sounds clear to auscultation throughout. GI: abdomen soft, nontender, nondistended Extremities: no edema, clubbing or cyanosis DS: Data Vitals/I&O Vitals and I&O: Vital Signs Temperature 37.0 C 03/23/18 11:52 Temperature Source Tympanic 03/23/18 11:52 Pulse 63 03/23/18 11:52 Pulse Rhythm Regular 03/23/18 08:44 Pulse 61 03/21/18 15:50 Respiratory Rate 18 03/23/18 11:52 Respiratory Effort Non-Labored 03/23/18 08:44 Respiratory Depth Normal 03/23/18 08:44 Respiratory Pattern Normal 03/23/18 08:44 Blood Pressure 99/65 L 03/23/18 11:52 Blood Pressure Mean 78 03/21/18 15:47 Blood Pressure Position Sitting 03/21/18 11:16 Pulse Oximetry 96 03/23/18 11:52 Oxygen Delivery Method Room Air 03/23/18 11:52 Oxygen Flow Rate 0 03/23/18 11:52 Fraction of Inspired Oxygen (FIO2) 3 03/22/18 15:30 Pain Level 0 03/23/18 03:25 Comment 03/22/18 19:14 Intake & Output 03/22/18 03/23/18 03/23/18 23:59 11:59 23:59 Intake Total 1580 / 2220 Output Total 1600 / 3250 Balance -20 / -1030 Intake: IV 500 / 500 Oral 1080 / 1720 Output: Urine 1600 / 3250 Other: Urine Color Pale Urine Appearance Clear Urine Odor Normal Voiding Methods Toilet Completed studies during hospitalization [Text1]: 03/21/2018: PA AND LATERAL CHEST: Comparison is made with 13 Jan 2016. The heart size is normal. The aorta is mildly tortuous but normal in diameter. The lungs are well inflated and clear. No infiltrate or effusion is seen. There is no evidence of pneumothorax. IMPRESSION: Negative chest x-ray. PE CHEST CT: CT angiography was performed with multi slice acquisition and multi planar and 3D reconstruction. Comparison is made with plain films of the same day. The lungs show dependent changes. The aorta and pulmonary arteries are well opacified with IV contrast and no pulmonary emboli are seen. There is no evidence of aortic dissection. The visualized portions of the upper abdomen are unremarkable. IMPRESSION: Negative chest CTA. No evidence of pulmonary emboli or other acute abnormality. 03/22/2018: Summary: 1. Left ventricle: The cavity size was normal. Wall thickness was normal. Systolic function was normal. The estimated ejection fraction was 60-65%. Wall motion was normal; there were no regional wall motion abnormalities. 2. Right ventricle: The cavity size was normal. Systolic function was normal. 3. Inferior vena cava: The vessel was patent and normal in size. The respirophasic diameter changes were in the normal range (greater than or equal to 50%), consistent with normal central venous pressure. 03/23/2018: Impressions: Normal myocardial perfusion and contraction after maximal exercise. Summary: 1. Myocardial perfusion imaging: No myocardial perfusion defects noted. 2. The calculated left ventricular ejection fraction after stress: > 75%. LV global systolic function is normal. No left ventricular regional motion abnormality. 3. Stress ECG conclusions: The stress ECG is negative. Butler treadmill score: 11. This score predicts a low risk of cardiac events. 4. Stress: The target heart rate was achieved. The heart rate response to stress is normal. There is a normal resting blood pressure with a blunted response to stress. Exercise capacity is above normal for age. 5. Treadmill exercise testing was performed using the Mahendra protocol. The patient exercised for 11 min, to protocol stage 3, to a maximal work rate of 8.9mets. Exercise was terminated due to fatigue. Labs on day of discharge: Labs from last 24 hours 03/23/18 03/23/18 06:15 06:15 Plt Count 342 D Sodium 143 Potassium 3.8 Chloride 107 Carbon Dioxide 29.8 Anion Gap 6.2 BUN 21 H Creatinine 0.71 Estimated GFR/1.73 m2 >= 60.00 Glucose 84 Calcium 8.6 Magnesium 2.2 PFSH Medical History Pre-diabetes (Chronic) Migraine Surgical History Biopsy of breast (~1999) Colonoscopy - IV Sedation (~2010) Family History Other Heart disease Hyperlipidemia Tuberculosis Social History number of children: 3 current occupation: [employer] in [place] Smoking/Tobacco Use Status: Former Tobacco Use pack-years: 5 how long ago did patient quit smokin years History History 3 Para 3 Hx # Term Pregnancies 3 Multiple births Hx # Pregnancies Ectopic pregnancies AB induced Hx Number of Living Children AB spontaneous
--- NOTE | 2018-03-23 16:25 | CHAPLAIN ---
Christine was very pleasant when I visited with her. 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
--- NOTE | 2018-03-23 17:09 | PDOC.CMDIS ---
- If Service Date Differs Date of service: 03/23/18 Time of Service: 17:10 LACE Index Scoring Tool - Questions: Length of Stay (in days): 2 Acuity (Admit via E.D.?): Yes Comorbidities: Diabetes w/o Complication E.D. Visits: 1 - Answers: Total Score: 7 Risk of Readmission: Low Risk Care Management Discharge Reason for Hospitalization: Chest Pain Discharge Plan: Christine is being discharged home today follow-up with primary care. No services needed at time of discharge. She was started on low-dose aspirin and she has a scheduled appointment with her provider on 03/30/2018. Patient/Family Education Needs: Discharge education, limitations, follow-up plan of care, asked me 3 and self-management.
== END 2018-03-23 16:20 | disposition home or self-care (01) ==
LOC: ER 17:11 → MS 19:07
PROVIDERS: Student in an Organized Health Care Education/Training Program; Admitting Provider Internal Medicine; Emergency Provider Student in an Organized Health Care Education/Training Program; PCP Nurse Practitioner; Visit Provider Internal Medicine
DX: R07.9 Chest pain, unspecified (principal); R73.03 Prediabetes; R94.31 Abnormal electrocardiogram [ECG] [EKG]; Z82.49 Family history of ischemic heart disease and other diseases of the circulatory system
CPT/HCPCS: 36415; 71275; 78452; 80048; 80053; 80061; 83721; 85652; 93005; 99219; 99231; 99239; 99285; J1650; 71046; 83036; 83735; 84443; 84484; 85025; 85049; 85379; 93010; 93017; 93306; 99224; G0378; J3490

== ENCOUNTER 2018-08-15 12:00 | Day surgery (SDC) | payer MEDICAID, SELFPAY ==
--- NOTE | 2018-08-15 06:49 | COLE_ITS ---
Date of service: 08/15/18 Time of Service: 13:14 Colonoscopy Report Date of procedure: 08/15/18 Pre-op diagnosis general: Colon Cancer Screening Post-op diagnosis procedure note: other (2 polyps) Procedure: Colonoscopy with cold forceps Surgeon: Lulu Navarro Anesthesia proc note operative: other (General/ ASA 2/Pollo Burks CRNA ) Estimated blood loss (mL): 3 Pathology: other (descending and sigmoid colon polyp) Complications: None Disposition: same day Indications: Mrs. Snow is a pleasant 63 year old female who was seen in the office for a follow-up colonoscopy. Her last colonoscopy was approximately 10 years ago in [facility]. Per the patient it was normal. She has no family history of colon cancer that she is aware of. Risks, benefits and complications have been reviewed. Complications include but are not limited to bleeding, pain, perforation, missed small lesion/polyp, sore throat, aspiration and adverse reaction to the medications. Questions were entertained and answered to their satisfaction and they wished to proceed. No guarantees were given or implied. Prep: Miralax/Dulcolax Procedure Start Time: 13:14 Procedure End Time: 13:38 Retraction Time: 15 Findings: 2 small, benign appearing polyps. Procedure Description: After informed consent was obtained the patient was taken to the procedure room and placed in a left decubitous position. Monitors were applied and a time out was done. The patients name, date of , procedure, allergies to medications and metal in their body was reviewed. The patient was then sedated. Once sedated and comfortable a rectal exam was done. External exam was normal. Internal exam revealed a normal sphincter tone and no palpable masses. The scope was then introduced and retro-flexed. No internal hemorrhoids were identified. The scope was then advanced to the cecum without difficulty. The TI and appendiceal orifice were identified. The prep was adequate. The scope was then slowly retracted over 15 minutes back into the rectum. Polyps were removed with cold forceps in the descending and sigmoid colon. The scope was removed and the patient was woken up and taken back to Same day surgery in stable condition. The patient tolerated the procedure well and there were no immediate complications. Follow up: The patient should follow up in 10 years unless the polyps come back as pre-malignant or they develop changes in bowel habits or other new gas trointestinal complaints.
--- NOTE | 2018-08-15 06:50 | W.PM.DSUDISC ---
Discharge Plan Disposition Patient Disposition: HOME Condition: Good Discharge Details Reason For Visit: Colonoscopy Attending Provider: Lulu Navarro Primary Care Provider: Bertha Hernandez Home Meds and New Rx's Prescriptions: Continued omega-3 fatty acids [Fish Oil Concentrate] 1,000 mg capsule 1,000 mg PO DAILY RF: 0 Discontinued bisacodyl [Dulcolax (bisacodyl)] 5 mg tablet,delayed release (DR/EC) 5 mg PO ONCE Qty: 4 RF: 0 polyethylene glycol 3350 17 gram powder in packet 255 g PO DAILY Qty: 15 RF: 0 Discharge Instructions Instructions: Colonoscopy (DC), Colorectal Polyps (DC) Additional Instructions: Findings: 2 small benign appearing polyps Follow up: 10 years most likely Please call if you develop: fevers >101.5 Nausea or Vomiting Abdominal pain that is not transient DAY SURGERY UNIT POST COLONOSCOPY INSTRUCTIONS 1. Because there will be medication in your system for the next 24 hours, you may feel a little sleepy. Your coordination will be affected. Therefore: a. Do not drive or operate dangerous equipment for 24 hours. b. Do not drink alcohol beverages for 24 hours (not even beer). c. Plan to go home and rest for the day. 2. Generally there are no restrictions on your activity after a day or so has gone by, but you may feel a bit fatigued for a few days. 3 After you arrive home you may have a light meal and return to a normal diet as you can tolerate it without feeling sick to your stomach. 4. After surgery, you may feel pain or discomfort. This should be only transient, but if it persists please contact your doctor. 5. If there are any questions regarding the findings of your procedure, please feel free to contact your doctor. 6. If you are unable to contact your doctor with a problem, contact the hospital at [phone]. 7. Continue all your regular medications unless directed otherwise. I understand the above instructions and have no questions. Signature of Patient or Responsible Adult Escort Date/Time Name of Responsible Adult Escort Signature of Nurse Date/Time Activity:: Activity as Tolerated Diet:: As Tolerated Discharge Orders Discharge Orders: Discharge Order (Routine); Ordered 08/15/18 Ordered By: Lulu Navarro DS: Diagnosis Discharge Diagnosis (1) S/P colonoscopy: Status: Acute (2) Colorectal polyps: Status: Acute
[2018-08-15 12:33] VITALS: BP 101/70; PULSE 81; RESP 16; TEMP 36.8; O2SAT 95
[2018-08-15] MEDS: Lactated Ringers 1,000 ML 80 ML IV (12:45)
--- NOTE | 2018-08-15 13:36 | BOWEL_PTH ---
PATIENT: Christine Snow LOC: [facility] U#:[id number] AGE/SX: 63/F ROOM: RE08/15/[address]: Lulu Navarro MD : [id number] BED: DIS: 08/15/2018 SPEC #: [id number] RECD: 08/15/18 17:06 STATUS: GERMAIN RE #: [id number] MARIS: 08/15/18 13:[address]: Lulu Navarro DEPT: Surgical Specimen RECD BY: Sharla Rausch ENTERED: 08/15/18 17:07 SP TYPE: Bowel OTHR DR: Bertha Hernandez Tissues: 1 - BIOPSY BOWEL 2 - BIOPSY BOWEL Procedures: GROSS AND MICRO LEVEL 4 Comments: [id number]
[2018-08-15 14:10] VITALS: BP 128/63; PULSE 67; RESP 18; TEMP 36.1; O2SAT 100
== END 2018-08-15 15:07 | disposition home or self-care (01) ==
LOC: SUR 12:00
PROVIDERS: PCP Nurse Practitioner; Visit Provider Surgery
PROC: 0DJD8ZZ Inspection of Lower Intestinal Tract, Via Natural or Artificial Opening Endoscopic (ICD-10-PCS; CPT 45378; principal; 2018-08-15 12:15)
DX: Z12.11 Encounter for screening for malignant neoplasm of colon (principal); K63.5 Polyp of colon
CPT/HCPCS: 45380; 88305

== ENCOUNTER 2018-09-04 15:40 | Emergency (ER) | payer MEDICAID, SELFPAY ==
[2018-09-04 15:46] VITALS: BP 136/79; PULSE 69; RESP 16; TEMP 36.7; O2SAT 99
--- NOTE | 2018-09-04 16:14 | ED.GENADUL_ITS ---
Discharge Plan Disposition Patient Disposition: HOME Condition: Fair Discharge Details Chief Complaint: Headache Clinical Impression: Headache Primary Care Provider: Bertha Hernandez ED Provider: Kailyn Oden Home Meds and New Rx's Prescriptions: No Action No Known Home Meds RF: 0 Discharge Instructions Instructions: General Headache (ED) Additional Instructions: Your laboratory evaluation and imaging are reassuring today. Please continue to encourage hydration. You may use Tylenol and ibuprofen as needed for discomfort. If you develop increased pain, fever/chills, change in your vision, weakness, sensation changes or other new/worsening symptoms please seek care urgently once again. Otherwise, please follow-up with your primary care within the next week for reevaluation. Referrals: Bertha Hernandez [Primary Care Provider] - Discharge Data Discharge Date/Time-TO BE ENTERED AT DEPARTURE: 09/04/18 19:15 Medical Decision Making Patient is 63-year-old female with history of migraines presenting today with chief complaint of headache. She reports a headache began several hours ago. States the headache has been intermittent. Believes it was worse than her typical associated with the heat. Patient reports that she typically gets about 3 migraines a year and does not typically take any medication for this. Was taking ibuprofen historically but states that she stopped secondary to side effects listed on the bottle. States that this point, her headache is largely resolved and she believes associated with feeling safe being in her institution. States that she did have resolution of her symptoms earlier this morning when her friend massaged her neck. She reports that after leaving her friend, her pain began again. States that this was after driving in a bright light. Patient does report that typically she does have photophobia associated with her migraines. She is also concerned that she vomited x1 which is unusual for her. States she had one episode of loose stool this morning. Denies any rash. Denies any fevers or chills. On exam, patient appears nontoxic. She is resting comfortably. Indicates left eye is area of maximal discomfort. Neurologic exam is intact. Her vital signs are within normal limits. Patient was also indicating that she has had some pain in the left shoulder for the past several months. On exam, seems to be primarily emanating from her rotator cuff. No neurologic deficit is appreciated in this arm. As patient reports that the headache is been worse than typical, that the nausea is worse than typical, will obtain imaging. Patient is not anticoagulated. No recent trauma. Will give Phenergan for the nausea. If CT is without evidence of bleed, plan to add Toradol. Per nursing staff given the patient her medications, she reports complete resolution of her symptoms and declines anything at this time. Laboratory evaluation is reassuring. Pending imaging still. FINDINGS: Brain: Normal. No hemorrhage. Unremarkable white matter. No mass effect. Ventricles: Normal. No ventriculomegaly. Bones/joints: Unremarkable. No acute fracture. Sinuses: Visualized sinuses are unremarkable. No fluid levels. Mastoid air cells: Visualized mastoid air cells are well aerated. No mastoid effusion. Soft tissues: Unremarkable. IMPRESSION: No acute intracranial abnormality. Discussed these findings with the patient. Patient has declined all medications since being here. She reports that her headache is completely subsided. She did receive IV fluids. Is ready to be discharged home at this time. Patient continues to be neurologically sound. Feels that her initial presentation secondary to her increased anxiety. She reports that this is also subsided. I did advise that she follow-up with her primary care for reevaluation discuss her recurrent headaches. She was given strict return precautions, lives locally and is able to return with worsening symptoms. All of her questions and concerns were addressed and she is in agreement this plan. [facility] General Mode of arrival: ambulatory . Date/Time Provider Initiated Documentation: 09/04/18 16:13 . Limitations to Documentation: no limitations . Information obtained by: patient and RN notes reviewed . History of Present Illness 63 year old F presents to the emergency department with the chief complaint of headache, described as moderate and similar to prior episodes, with intensity rated at 8. Quality is described as aching, and is localized to the head (behind left eye). Patient reports no radiation. and it has been intermittent. other things that improve symptom(s), (massage) Other factors that worsen symptoms (bright light, heat) . Patient notes headaches, loss of appetite and nausea/vomiting (vomited x 1 today, currently nauseated, soft stool x 1); denies confusion, chest pain, cough, fever/chills, rash, seizure, shortness of breath and weakness. Patient did receive the following treatments prior to arrival, none Related Data Home Medications Medication Instructions Recorded Confirmed Unknown [No Known Home Meds] 09/04/18 09/04/18 Allergies Allergy/AdvReac Type Severity Reaction Status Date / Time No Known Allergies Allergy Unverified 09/04/18 15:51 General Stated Complaint: Headache NEREIDA: 3 Review of Systems Constitutional Reports as per HPI, Denies chills, Reports fatigue, Denies fever(s), Denies frequent falls, Reports headache(s) and Denies weakness Eyes Reports as per HPI, Denies blurry vision, Denies change in vision and Reports photophobia ENT Denies vertigo, Reports headache(s) and Denies neck pain Cardiovascular Reports as per HPI, Denies chest pain, Denies lightheadedness, Denies radiating jaw, neck or arm pain, Denies dyspnea and Denies dyspnea on exertion Respiratory Reports as per HPI, Denies chest congestion, Denies cough, Denies dyspnea, Denies dyspnea on exertion, Denies stridor and Denies wheezing Gastrointestinal Reports as per HPI, Denies abdominal pain, Reports change in stool character (softer than typical x 1), Reports nausea and Reports vomiting Musculoskeletal Reports as per HPI, Denies back pain, Denies myalgias, Denies muscle cramps, Denies neck pain and Denies numbness Integumentary/Breasts Reports as per HPI and Denies rash Neurologic Reports as per HPI, Denies abnormal movements, Denies abnormal speech, Denies behavioral changes, Denies confusion, Denies vertigo, Denies frequent falls, Reports headache(s), Denies focal weakness, Denies numbness, Denies sensory deficit and Denies weakness Psychiatric Denies behavioral changes and Denies confusion Endocrine Reports fatigue Allergic/Immunologic Denies wheezing [facility] Medical History Chronic low back pain (Chronic) Endocervical polyp (Acute) Headache (Acute) Left arm pain (Acute) Pre-diabetes (Chronic) Surgical History Biopsy of breast (~1999) Colonoscopy - IV Sedation (~2010) S/P colonoscopy (Acute ~08/15/18) Social History Smoking/Tobacco Use Status: Former Tobacco Use Quit Date: 02/15/83 Pack-years: 5 Tobacco: How many years used: 5 Alcohol Intake: current Alcohol Intake frequency: a few times a week Alcohol type: wine and hard liquor Drug use: Never Substance use type: does not use Details: alcohol: t-30 Number of Children: 3 current occupation: [employer] in [place] Do you feel safe at home: Yes Additional Social history: History History 3 Para 3 Hx # Term Pregnancies 3 Multiple births Hx # Pregnancies Ectopic pregnancies AB induced Hx Number of Living Children AB spontaneous Exam Const General: cooperative, healthy appearing, uncomfortable, no acute distress, well developed and well groomed Nutritional Appearance: average body habitus and well nourished Orientation: alert, awake and oriented x3 HENMT Head: normal to inspection, no palpable skull fracture, normocephalic and atraumatic Ears: hearing grossly normal bilaterally, external ears normal and TM's normal bilaterally General nose exam: external nose normal Mouth: oral mucosae normal and moist mucous membranes Throat: posterior oropharynx normal Eyes General: appearance normal, both eyes and all related structures Alignment and Position: alignment normal Periorbital: periorbital findings normal Eyelids: eyelids normal Sclera: sclerae normal Cornea: corneas normal Pupils: PERRL EOM: EOM intact bilaterally Neck Neck: normal visual inspection, full ROM, no lymphadenopathy and no meningeal signs Resp Effort & Inspection: normal respiratory effort, able to speak in complete sentences and no respiratory distress Auscultation: clear to auscultation bilaterally, no rales, no rhonchi and no wheezes Cardio Rate: regular rate Rhythm: regular rhythm Heart Sounds: S1 normal and S2 normal GI Inspection: normal to inspection and non-distended Palpation: soft, no hepatosplenomegaly, not firm, no guarding, not rigid and nontender Percussion: normal to percussion Auscultation: normal bowel sounds Back/Spine/Pelvis Cervical Spine: normal cervical lordosis and cervical ROM normal Skin General skin exam: no rashes or lesions noted Neuro General: alert, awake and oriented x3 Cranial Nerves: CN's II-XI intact bilaterally Cognition: normal cognition Speech: speech normal Gait: normal gait Motor: muscle tone normal throughout, strength 5/5 throughout, no pronator drift, no movement abnormalities noted and no fasciculations Sensory Exam: no sensory deficits noted Coordination: [id number] test normal and [id number] test normal Extrem General: normal to inspection, normal capillary refill, no pedal edema and no calf tenderness Psych Appearance: grossly normal and well kempt Mental Status: mental status grossly normal Speech and Movement: speech and movement normal Course Vital Signs Temperature 36.7 C 09/04/18 15:46 Pulse 69 09/04/18 15:46 Respiratory Rate 16 09/04/18 15:46 Blood Pressure 136/79 09/04/18 15:46 Pulse Oximetry 99 09/04/18 15:46 Temperature 36.7 C 09/04/18 15:46 Temperature Source Skin 09/04/18 15:46 Pulse 69 09/04/18 15:46 Respiratory Rate 16 09/04/18 15:46 Respiratory Effort Non-Labored 09/04/18 15:49 Blood Pressure 136/79 09/04/18 15:46 Pulse Oximetry 99 09/04/18 15:46 Pain Level 8 09/04/18 15:46
[2018-09-04] MEDS: Normal Saline 1,000 ML 1000 ML IV (16:27)
[2018-09-04 16:48] LABS: Abs Immature Grans 0.01 k/cumm (0.0-0.09); Absolute Basophil Count 0.04 k/cumm (0.0-0.2); Absolute Eosinophil Count 0.07 k/cumm (0.0-0.7); Absolute Lymphocyte Count 1.03 k/cumm (1.2-3.4); Absolute Monocyte Count 0.24 k/cumm (0.11-0.7); Basophils % 0.6; Eosinophils % 1.1; HCT 37.8 % (36.0-46.0); HGB 12.4 g/dL (12.0-15.5); Immature Grans % 0.2; Lymphocytes % 16.1; Mean Corp. HGB Concentration 32.8 g/dL (32.0-36.0); Mean Corpuscular Hemoglobin 29.2 pg (27.0-33.0); Mean Corpuscular Volume 89.2 fL (80-95); Mean Platelet Volume 9.9 fL (8.0-11.0); Monocytes % 3.8; Neutrophils % 78.2; Platelet Count 334 x1000/uL (130-400); RBC 4.24 m/cumm (4.00-5.20); RBC Distribution Width 11.9 % (11.7-14.6); White Blood Cell Count 6.39 k/cumm (4.4-10.8)
[2018-09-04 17:05] LABS: ALT 20 U/L (12-78); AST 16 U/L (15-37); Albumin 3.9 g/dL (3.4-5.0); Alkaline Phosphatase 67 U/L (46-116); Anion Gap 7.8 mmol/L (3-11); BUN 18 mg/dL (7-18); Bilirubin, Total 0.9 mg/dL (0.2-1.0); CO2 29.2 mmol/L (21.0-32.0); CREATININE 0.55 mg/dL (0.55-1.02); Chloride 102 mmol/L (98-107); Glucose 108 mg/dL (70-100); Potassium 3.8 mmol/L (3.5-5.1); Sodium 139 mmol/L (136-145); Total Protein 7.3 g/dL (6.4-8.2)
--- NOTE | 2018-09-04 17:32 | DI.CT_ITS ---
SYMPTOMS/DIAGNOSIS: LEFT OCULAR HEADACHE SINCE YESTERDAY CT BRAIN, NONCONTRAST: No priors. The ventricular system is normal in appearance. There is no evidence of an intracranial mass lesion. There is no evidence of a subdural or epidural hematoma. No focal areas of decreased attenuation are seen. IMPRESSION: Normal noncontrast cranial CT.
--- NOTE | 2018-09-04 17:55 | DI.VRAD_ITS ---
EXAM: CT Head Without Contrast EXAM DATE/TIME: 09/04/2018 4:29 PM CLINICAL HISTORY: 63 years old, female; Other: Occular; Patient HX: Left ocular headache since yesterday, left eye pain, no trauma/injury, no visual disturbances. TECHNIQUE: Imaging protocol: Computed tomography images of the head without contrast. Coronal and sagittal reformatted images were created and reviewed. Radiation optimization: All CT scans at this facility use at least one of these dose optimization techniques: automated exposure control; mA and/or kV adjustment per patient size (includes targeted exams where dose is matched to clinical indication); or iterative reconstruction. COMPARISON: No relevant prior studies available. FINDINGS: Brain: Normal. No hemorrhage. Unremarkable white matter. No mass effect. Ventricles: Normal. No ventriculomegaly. Bones/joints: Unremarkable. No acute fracture. Sinuses: Visualized sinuses are unremarkable. No fluid levels. Mastoid air cells: Visualized mastoid air cells are well aerated. No mastoid effusion. Soft tissues: Unremarkable. IMPRESSION: No acute intracranial abnormality. Dictated and Authenticated by: Justin Helm MD. Ordering:PEPITO Avina MD
[2018-09-04 19:08] VITALS: BP 93/55; RESP 16; O2SAT 95
== END 2018-09-04 19:15 | disposition home or self-care (01) ==
PROVIDERS: Emergency Provider Physician Assistant; PCP Nurse Practitioner
DX: R51 Headache (principal)
CPT/HCPCS: 36415; 80053; 96361; 96374; 99284; 70450; 85025

== ENCOUNTER 2019-05-02 13:37 | Outpatient (REF) | payer OTHER, SELFPAY ==
[2019-05-02 19:30] LABS: Absolute Basophil Count 0.05 k/cumm (0.0-0.2); Absolute Eosinophil Count 0.15 k/cumm (0.0-0.7); Absolute Lymphocyte Count 1.88 k/cumm (1.2-3.4); Absolute Monocyte Count 0.29 k/cumm (0.11-0.7); Basophils % 1.1; Eosinophils % 3.3; HCT 39.2 % (36.0-46.0); HGB 12.7 g/dL (12.0-15.5); Lymphocytes % 41.1; Mean Corp. HGB Concentration 32.4 g/dL (32.0-36.0); Mean Corpuscular Hemoglobin 29.4 pg (27.0-33.0); Mean Corpuscular Volume 90.7 fL (80-95); Mean Platelet Volume 10.1 fL (8.0-11.0); Monocytes % 6.3; Neutrophils % 48.2; Platelet Count 392 x1000/uL (130-400); RBC 4.32 m/cumm (4.00-5.20); RBC Distribution Width 12.3 % (11.7-14.6); White Blood Cell Count 4.57 k/cumm (4.4-10.8)
[2019-05-02 19:54] LABS: ALT 20 U/L (14-59); AST 16 U/L (15-37); Albumin 3.8 g/dL (3.4-5.0); Alkaline Phosphatase 62 U/L (46-116); Anion Gap 5.4 mmol/L (3-11); BUN 23 mg/dL (7-18); Bilirubin, Total 0.8 mg/dL (0.2-1.0); CO2 32.6 mmol/L (21.0-32.0); CREATININE 0.88 mg/dL (0.55-1.02); Calcium 8.8 mg/dL (8.5-10.1); Calculated LDL 116 mg/dL (<100); Chloride 107 mmol/L (98-107); Cholesterol 230 mg/dL (<200); Glucose 68 mg/dL (74-106); HDL Cholesterol 107 mg/dL (40-60); Potassium 4.4 mmol/L (3.5-5.1); Sodium 145 mmol/L (136-145); TSH (W/Ref FT4) 1.03 uIU/mL (0.36-3.74); Total Protein 6.7 g/dL (6.4-8.2); Triglyceride 38 mg/dL (<150)
[2019-05-04 04:35] LABS: Vitamin D 25 Total 24.4 ng/ml (30-100)
== END 2019-05-02 13:57 ==
LOC: NCHCN 13:37
PROVIDERS: PCP Nurse Practitioner; Visit Provider Nurse Practitioner
DX: R53.83 Other fatigue (principal); R06.02 Shortness of breath
CPT/HCPCS: 80053; 80061; 82306; 83036; 84443; 85025

== ENCOUNTER 2019-09-28 00:56 | Outpatient (CLI) | payer OTHER, SELFPAY ==
--- NOTE | 2019-09-28 16:00 | DI.DEXA_ITS ---
EXAM: XR DEXA BONE DENSITY W/WO CHRISTA CLINICAL HISTORY: SCREENING FOR OSTEOPOROSIS IN POSTMENOPAUSAL WOMAN,Z78.0 TECHNIQUE: COMPARISON: No exams were available for comparison FINDINGS: Lateral Spine Image: Unremarkable. No compression deformities identified. Left hip: Total T-Score: -2.8 Total Z-Score: -1.6 T- and Z-scores: Findings consistent with osteoporosis and high fracture risk. Lumbar Spine: Total T-Score: -3.5 Total Z-Score: -1.7 T- and Z-scores: Findings consistent with osteoporosis and high fracture risk. IMPRESSION: Osteoporosis.
--- NOTE | 2019-09-28 16:18 | DI.MAMMO_ITS ---
EXAM: MG MAMMO SCREENING CLINICAL HISTORY: SCREENING, Z12.39 TECHNIQUE: Bilateral full field digital CC and MLO mammographic images were obtained with 3D tomosyn thesis and utilizing computer aided detection (CAD). COMPARISON: Available for comparison. FINDINGS: Masses/Architectural Distortion: None seen. Microcalcifications: No suspicious pleomorphic-type are seen. Skin Thickening/Nipple Retraction: None. IMPRESSION: 1. No significant interval change with no specific features of malignancy noted. 2. Unless there is more urgent need, screening mammography is recommended, as per [employer] guidelines. BI-RADS Category 1 - Negative Breast Density - Category A - Almost entirely fatty A negative radiographic report should not delay biopsy if a dominant or clinically suspicious mass is present. Up to ten percent of cancers are not identified on mammography. A negative report may reinforce clinical impression. Adenosis and dense breasts may obscure an underlying neoplasm. False positive reports average 6 to 10%. Patient will receive a letter notifying them of these results.
== END 2019-09-28 01:16 ==
PROVIDERS: PCP Nurse Practitioner; Visit Provider Nurse Practitioner
DX: Z78.0 Asymptomatic menopausal state (principal); M81.0 Age-related osteoporosis without current pathological fracture; Z12.31 Encounter for screening mammogram for malignant neoplasm of breast
CPT/HCPCS: 77063; 77067; 77080

== ENCOUNTER 2020-05-14 12:37 | Outpatient (REF) | payer OTHER, MEDICAID, SELFPAY ==
--- NOTE | 2020-05-14 11:45 | PAPFT_PTH ---
PATIENT: Christine Snow [facility] U[facility][id number] AGE/SX: 65/F ROOM: RE05/14/[address]: Bertha Hernandez : 1955 BED: DIS: 05/14/2020 SPEC #: [id number] RECD: 05/14/20 17:39 STATUS: GERMAIN RESpring #: [id number] MARIS: 05/14/20 11:[address]: Bertha Hernandez DEPT: [facility] Cytology RECD BY: Dari Espinoza Tissues: 1 - CX/ENDOCX FOR PAP SMEARS Procedures: PAP THIN PREP/UVM Screening HPV DNA PROBE Comments: [id number]
[2020-05-14 15:16] LABS: HCT 39.3 % (36.0-46.0); HGB 12.4 g/dL (11.2-15.7); MCHC 31.6 % (32.0-36.0); MCV 91.8 fL (80-95); Platelet Count 378 10^3/uL (130-400); RBC 4.28 10^6/uL (3.93-5.22); RDW 11.6 % (11.7-14.6); RDW-SD 39.4 fL; WBC 5.82 10^3/uL (4.4-10.8)
[2020-05-14 16:32] LABS: Hemoglobin A1C 5.8 % (<5.7)
[2020-05-14 16:40] LABS: ALT 22 U/L (14-59); AST 16 U/L (15-37); Albumin 3.9 g/dL (3.4-5.0); Alkaline Phosphatase 39 U/L (46-116); Anion Gap 7.5 mmol/L (3-11); BUN 19 mg/dL (7-18); Bilirubin, Total 0.8 mg/dL (0.2-1.0); CO2 30.5 mmol/L (21.0-32.0); CREATININE 0.9 mg/dL (0.55-1.02); Calculated LDL 112 mg/dL (<100); Chloride 105 mmol/L (98-107); Cholesterol 226 mg/dL (<200); Glucose 90 mg/dL (74-106); HDL Cholesterol 99 mg/dL (40-60); Sodium 143 mmol/L (136-145); Total Protein 7.1 g/dL (6.4-8.2); Triglyceride 76 mg/dL (<150)
[2020-05-16 04:35] LABS: Vitamin D 25 Total 32.4 ng/mL (30-100)
== END 2020-05-14 12:38 | disposition home or self-care (01) ==
LOC: NCHCN 12:37
PROVIDERS: PCP Nurse Practitioner; Visit Provider Nurse Practitioner
DX: Z00.00 Encounter for general adult medical examination without abnormal findings (principal); R53.83 Other fatigue; R73.09 Other abnormal glucose; R79.89 Other specified abnormal findings of blood chemistry; M81.0 Age-related osteoporosis without current pathological fracture; Z12.4 Encounter for screening for malignant neoplasm of cervix; Z11.51 Encounter for screening for human papillomavirus (HPV)
CPT/HCPCS: 80053; 80061; 82306; 85027; 88142; 83036; 84443; 87624

== ENCOUNTER 2020-08-26 07:05 | Day surgery (SDC) | payer OTHER, MEDICAID, SELFPAY ==
[2020-08-26 07:30] VITALS: BP 117/68; PULSE 70; RESP 16; TEMP 36.6; O2SAT 100
--- NOTE | 2020-08-26 07:33 | W.ANESPRE ---
General Info Date of Service Date Performed: 08/26/20 Height: 4 ft 11 in Weight: 46.262 kg Body Mass Index (BMI): 20.5 Surgical Procedure: Operation Date: 08/26/20 08:40 Proposed Procedures Side Surgeon p Cataract Extraction with IOL Implant Left Jn Rodriguez MD Meds Allergies and Home Medications Allergies Allergy/AdvReac Type Severity Reaction Status Date / Time No Known Allergies Allergy Unverified 08/26/20 07:21 Home Medication Medication Instructions Recorded alendronate 70 mg PO DIRECTED 08/23/20 multivitamin 1 tab PO DAILY 08/23/20 Current Visit Medications: Current Medications Generic Name Dose Route Start Last Admin Trade Name Freq PRN Reason Stop Dose Admin Acetaminophen 1,000 mg 08/26/20 06:00 Acetaminophen 500 Mg Tab PO Q4H PRN PRN Miscellaneous Medication 0 ml 08/26/20 06:00 Prednisolone 1%, Moxifloxacin 0.5%, Nepafenac 0.1% 5ml Btl OS DIRECTED LEIGHANN Miscellaneous Medication 0 ml 08/26/20 06:00 Tropicam./Phenyleph. 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 H90.A12 S/P colonoscopy ~08/15/18 Z98.890 Pre-diabetes R73.03 Medical History Medical History Allergies Cataract Chronic low back pain Endocervical polyp Headache Left arm pain Osteoporosis Pre-diabetes Surgical History Surgical History Biopsy of breast (~1999) Benign Colonoscopy - IV Sedation (~2010) S/P colonoscopy (~08/15/18) Tobacco Smoking/Tobacco Use Status: Former Tobacco Use Tobacco: How many years used: 5 Alcohol Alcohol Intake: current Alcohol intake frequency: a few times a week Alcohol type: wine and hard liquor Substance Use Substance use: Never Substance use type: does not use Prental History History 3 Para 3 Hx # Term Pregnancies 3 Multiple births Hx # Pregnancies Ectopic pregnancies AB induced Hx Number of Living Children AB spontaneous Vital Signs and Lab Results Lab Results Blood Type / Crossmatch: No Data to Display Complete Blood Count: No Data to Display Complete Metabolic Panel: No Data to Display Liver Function Panel: No Data to Display Coagulation Panel: No Data to Display Cardiac Panel: No Data to Display Arterial Blood Gas: No Data to Display Venous Blood Gas: No Data to Display Pancreas Panel: No Data to Display Thyroid Panel: No Data to Display Infectious Disease: No Data to Display Blood Cultures: No Data to Display Toxicology Panel: No Data to Display Imaging and Studies Imaging and Studies Stress Test Summary: 03/23/2018 1. Myocardial perfusion imaging: No myocardial perfusion defects noted. 2. The calculated left ventricular ejection fraction after stress: > 75%. LV global systolic function is normal. No left ventricular regional motion abnormality. 3. Stress ECG conclusions: The stress ECG is negative. Butler treadmill score: 11. This score predicts a low risk of cardiac events. 4. Stress: The target heart rate was achieved. The heart rate response to stress is normal. There is a normal resting blood pressure with a blunted response to stress. Exercise capacity is above normal for age. 5. Treadmill exercise testing was performed using the Mahendra protocol. The patient exercised for 11 min, to protocol stage 3, to a maximal work rate of 8.9mets. Exercise was terminated due to fatigue. Echocardiogram Summary: 03/22/2018 *STUDY CONCLUSIONS* Summary: 1. Left ventricle: The cavity size was normal. Wall thickness was normal. Systolic function was normal. The estimated ejection fraction was 60-65%. Wall motion was normal; there were no regional wall motion abnormalities. 2. Right ventricle: The cavity size was normal. Systolic function was normal. 3. Inferior vena cava: The vessel was patent and normal in size. The respirophasic diameter changes were in the normal range (greater than or equal to 50%), consistent with normal central venous pressure. Anesthesia Assessment and Plan Anesthesia History Personal History: No History of Anesthesia Complications Family History: No Family History of Anesthesia Complications Exercise Tolerance Exercise Tolerance: Metabolic Equivalents>4 Pertinent Negatives Pertinent Negatives: No Symptoms of GERD, No Major Cardiovascular Symptoms or Complaints, No Major Pulmonary Symptoms or Complaints and No History of CVA/TIA Cardiac & Pulmonary Exam Cardiac Exam: Normal S1/S2 Heart Sounds Pulmonary Exam: Clear Bilateral Breath Sounds Airway Exam Known Difficult Airway: No Mallampati Class: 1 Mouth Opening: Normal (> 3cm) Thyromental Distance: Greater than 3 cm Neck Range of Motion: Full ROM Neck Circumference: Normal Teeth Condition: Normal Dentition ASA Classification ASA Score: ASA 2 Emergency Case?: No NPO Status NPO Status: NPO Clears >2 hours, Solids >8 hours Anesthesia Plan Resuscitation Status: Full Code Anesthesia Technique: MAC Anesthesia Airway Planned: Natural Airway Monitors Used: Standard Monitors
[2020-08-26] MEDS: Tropicam./Phenyleph. (1/2.5%) 5 ML BTL OS ×3 (07:38→07:48)
[2020-08-26 07:51] VITALS: BMI 20.5
[2020-08-26] MEDS: Tetracaine 0.5% 4 ML BTL OS (08:41)
[2020-08-26] MEDS: Balanced Salt Soln.-PLUS 500 ML BAG (08:41)
[2020-08-26] MEDS: Lidocaine 1% Pres-Free 5 ML VIAL (08:43)
[2020-08-26] MEDS: Lidocaine 2% Jelly 6 ML SYR (08:43)
[2020-08-26] MEDS: Povidone-Iodine Ophth 30 ML BTL (08:45)
[2020-08-26] MEDS: Duovisc Viscoelastic System EACH 1 EACH (08:45)
--- NOTE | 2020-08-26 09:00 | W.PM.DSUDISC ---
Discharge Plan Disposition Patient Disposition: HOME Condition: Good Discharge Details Attending Provider: Jn Rodriguez Primary Care Provider: Bertha Hernandez Home Meds and New Rx's Prescriptions: No Action alendronate 70 mg tablet 70 mg PO DIRECTED RF: 0 multivitamin Tablet 1 tab PO DAILY RF: 0 Discharge Instructions Stand Alone Forms: Post-op Topical Cataract, [place] Ganey (DSU) Discharge Orders Discharge Orders: Discharge Order (Routine); Ordered 08/26/20 Ordered By: Jn Rodriguez DS: Diagnosis Discharge Diagnosis (1) Nuclear sclerotic cataract of left eye: Status: Resolved (2) Cortical cataract of left eye: Status: Resolved (3) Posterior subcapsular age-related cataract of left eye: Status: Resolved
--- NOTE | 2020-08-26 09:02 | ROE_ITS ---
Date of service: 08/26/20 Time of Service: 09:02 Operative Note Operative Note DATE OF PROCEDURE: 08/26/20 PRE-OP DIAGNOSIS: Nuclear/cortical/posterior subcapsular cataract, left eye POST-OP DIAGNOSIS: same PROCEDURE: Cataract extraction using phacoemulsification with intraocular lens implant, left eye SURGEON: Jn Rodriguez ANESTHESIA TYPE: Local By Surgeon and MAC Refer to Anesthesia Record PATHOLOGY: none sent COMPLICATIONS: None Patient was transported to: same day Patient's condition: stable Implants: Vikas and Vikas [employer] / [employer] Tecnis [id number] Indications: Progressive decreased vision due to cataract, left eye Procedure Description: CATARACT SURGERY OPERATIVE REPORT PREOPERATIVE DIAGNOSIS: Nuclear/cortical/posterior subcapsular cataract, left eye POSTOPERATIVE DIAGNOSIS: Same OPERATION: Cataract extraction using phacoemulsification with posterior chamber intraocular lens implant, left eye. IOL: IOL Health And Safety Coordinator/Model: [employer] / ALAN Tecnis ZCB00 IOL Power: + 15.0 diopters IOL Serial Number: [id number] Optic Diameter: 6.0mm Haptic/Overall Diameter: 13.0mm PHACO INFO: Arash InVisMurion Vision System with OZil and Active [employer]uidics Cumulative Dispersed Energy (CDE): 6.75 seconds SURGEON: Jn Rodriguez MD, CINDY ANESTHESIA: Monitored Anesthesia Care (MAC), with local sub-tenon's anesthetic infiltration COMPLICATIONS: None SPECIMENS: None INDICATIONS FOR PROCEDURE: The patient is a 65-year-old lady with history of diminished visual acuity in her left eye. She is noted to have a significant nuclear/cortical/posterior subcapsular cataract in the left eye. She has previously undergone cataract surgery in the right eye elsewhere. The option of cataract surgery was offered to the patient and she felt she was symptomatic enough that she wished to proceed. PROCEDURE: The correct surgical eye was identified and marked as the left eye and the pupil was dilated in the preoperative area using mydriatics and cycloplegics. The dilated pupil size was 7.0 mm. Oral sedation was administered in the form of an Imprimis MKO Melt (midazolam 3mg/ketamine 25mg/ondansetron 2mg). The patient was brought to the operating room where cardiopulmonary monitoring was instituted and surgical time-out was performed, confirming the correct operative eye and IOL power. Topical anesthesia was administered and ophthalmic povidone-iodine 5% was instilled into the conjunctival fornices. Lidocaine gel was applied to the cornea and the stevenson-ocular area was prepped with Betadine 10% solution and draped in the usual sterile fashion for intraocular surgery, including an ape rture drape. A Tegaderm transparent film dressing was cut in half and used to cover the lashes and lid margins. Care was taken to sequester the lashes and lid margins under the Tegaderm dressing. A lid speculum was placed between the lids of the operative eye and the Chyna-Sariah operating microscope was maneuvered into position. Nelsy scissors were then used to make a conjunctival buttonhole approximately 6mm posterior to the limbus in the inferonasal quadrant. Blunt dissection was carried out to expose bare sclera, and a blunt-tipped sub-tenon?s anesthesia cannula was introduced and passed posteriorly along the globe where non- preserved plain lidocaine was injected into posterior sub-Tenon?s space. A sideport knife was used to make a paracentesis port superior/superiortemporally. Intraocular phenylephrine/lidocaine was injected into the anterior chamber. The anterior chamber was then filled with viscoelastic. A 2.4mm keratome knife was used to create a half-thickness groove at the limbus and then to construct a three-plane near-clear corneal tunnel extending 2.0mm into clear cornea in the temporal position. . A flap was raised on the anterior capsule and capsulorhexis forceps were used to complete a continuous curvilinear capsulorhexis of 5.5 mm. Balanced salt solution was then used to perform cortical cleaving hydrodissection and nuclear hydrodelineation until the lens could be freely rotated within the capsular bag. The lens nucleus was then disassembled and removed within the capsular bag and iris plane using phacoemulsification. Residual cortical material was removed using the 45-degree angled silicone I/A tip with 0.3mm port. The posterior capsule was carefully polished to remove as much residual lens epithelial cells as safely possible. The capsular bag was then inflated and the anterior chamber deepened with viscoelastic. The lens implant described above was inserted into the capsular bag using the ALAN Pauma Injector. A Kuglen hook was used to dial the IOL into position. Residual viscoelastic was then removed first from posterior to the IOL, then from the anterior chamber using the I/A handpiece. The lens implant was noted to center nicely within the capsular bag. The incisions were stromally hydrated, and the anterior chamber was reformed using BSS. Then 0.5cc of moxifloxacin 1.0mg/ml were injected into the capsular bag and anterior chamber. The incisions were checked with a Weck spear and found to be secure. Several drops of ophthalmic povidone-iodine 5% were then applied to the eye followed by two drops of Imprimis combination prednisolone/moxifloxacin/nepafenac solution. The drapes were removed and a clear plastic protective eye shield was placed over the eye. The patient was then returned to Same Day Surgery in stable condition.
[2020-08-26 09:10] VITALS: BP 112/68; PULSE 64; RESP 16; TEMP 36.4; O2SAT 100
--- NOTE | 2020-08-26 09:16 | W.ANESPOSTOP ---
Postoperative Evaluation Date, Time and Location Date Performed: 08/26/20 Time Performed: 09:16 Patient Location: Day Surgery Unit Vital Signs Most Recent Imported Vital Signs: Most Recent Vital Signs Temp Pulse Resp BP Pulse Ox 36.4 C L 64 16 112/68 100 08/26/20 09:10 08/26/20 09:10 08/26/20 09:10 08/26/20 09:10 08/26/20 09:10 Pain Score Most Recent Pain Score: Most Recent Pain Score Pain Level 0 08/26/20 09:10 Assessment Mental Status: Arousable with meaningful communication Airway and Respiratory Function: Patent airway with normal (patient baseline) respiratory exam Cardiovascular Function: Hemodynamically Stable Hydration Status: Adequately Hydrated Nausea & Vomiting: No Nausea or Vomiting Pain: Pt. Denies Any Pain Peripheral Nerve Block: Patient did not receive a nerve block
[2020-08-26 09:29] VITALS: BP 111/68; PULSE 68; RESP 16; TEMP 36.5; O2SAT 100
== END 2020-08-26 09:45 | disposition home or self-care (01) ==
PROVIDERS: PCP Nurse Practitioner; Visit Provider Ophthalmology
PROC: (CPT 66984; principal; 2020-08-26 08:30)
DX: H25.042 Posterior subcapsular polar age-related cataract, left eye (principal); R73.03 Prediabetes
CPT/HCPCS: 66984; V2632

== ENCOUNTER → 2021-08-27 01:38 | Outpatient (CLI) | payer MEDICARE, SELFPAY ==
--- NOTE | 2021-08-27 | DI.MAMMO_ITS ---
Exam(s) MAMMO SCREENING EXAM: mammo screening CLINICAL HISTORY: .. TECHNIQUE: Bilateral full field digital CC and MLO mammographic images were obtained with 3D tomosyn thesis and utilizing computer aided detection (CAD). COMPARISON: Prior mammograms were reviewed, the most recent being September 2019. FINDINGS: No CAD designations. No new significant radiograph findings in the breast. In the right breast on 3D imaging MLO there 3 x 3 millimeters nodular density located 2 cm in from th e nipple, more evident on prior studies. No malignant-appearing microcalcification groups in this re gion or elsewhere in either breast There is no significant architectural distortion nor skin thickening-retraction. IMPRESSION: 1. No radiographic evidence of malignancy in left breast. 2. Small 3 millimeter right breast nodular density, as best seen on the 3D MLO imaging. Spot geeta flori view and breast ultrasound recommended. BI-RADS Category 0 - Assessment Incomplete: Need additional imaging evaluation Breast Density - Category B - Scattered areas of fibroglandular density Breast density Category C or D implies that the patient has dense breast tissue. Dense breast tissue can make it harder to find cancer on a mammogram. Dense breast tissue is also associated with an incr eased risk of breast cancer. This information about the result of the mammogram report was provided to the patient to raise their awareness. Use this report when you speak with the patient about their risks for breast cancer, which includes their family history. At that time, you may recommend additional screening tests (Ultrasoun d or MRI) as these tests may add significant information. A negative radiographic report should not delay biopsy if a dominant or clinically suspicious mass is present. Up to ten percent of cancers are not identified on mammography. A negative report may reinforce clinical impression. Adenosis and dense breasts may obscure an underlying neoplasm. False positive reports average 6 to 10%. Patient will receive a letter notifying them of these results.
== END ==
PROVIDERS: PCP Nurse Practitioner Family; Visit Provider Nurse Practitioner Family
DX: Z12.31 Encounter for screening mammogram for malignant neoplasm of breast (principal); R92.8 Other abnormal and inconclusive findings on diagnostic imaging of breast
CPT/HCPCS: 77063; 77067

== ENCOUNTER → 2021-09-05 01:31 | Outpatient (CLI) | payer MEDICARE, SELFPAY ==
--- NOTE | 2021-09-05 09:48 | DI.MAMMO_ITS ---
Exam(s) MAMMO SCREEN CALL BACK UNI EXAM: MAMMO SCREEN CALL BACK UNI CLINICAL HISTORY: F/U MAMMO, RT BREAST NODULAR DENSITY TECHNIQUE: MLO spot compression views and tomographic imaging were performed. COMPARISON: 2012 through 2019 FINDINGS: No suspicious masses or suspicious microcalcifications are seen. No persistent abnormality is seen on the additional views performed. The question nodularity corresp onded to overlapping tortuous vessels. There has been no significant change from prior exams. IMPRESSION: BI-RADS Category 1, Negative Yearly screening mammography is recommended. Breast Density - Category B, scattered fibroglandular densities.
== END ==
PROVIDERS: PCP Nurse Practitioner Family; Visit Provider Nurse Practitioner Family
DX: Z12.31 Encounter for screening mammogram for malignant neoplasm of breast (principal); R92.8 Other abnormal and inconclusive findings on diagnostic imaging of breast
CPT/HCPCS: 77063; 77067

== ENCOUNTER → 2021-10-09 00:56 | Outpatient (CLI) | payer MEDICARE, SELFPAY ==
--- NOTE | 2021-10-09 | DI.DEXA_ITS ---
Exam(s) XR DEXA BONE DENSITY W/WO CHRISTA EXAM: XR DEXA BONE DENSITY W/WO CHRISTA CLINICAL HISTORY: OSTEOPOROSIS, M81.0 TECHNIQUE: COMPARISON: CR XR DEXA BONE DENSITY W/WO CHRISTA from 09/28/2019 FINDINGS: DEXA scan was performed according to the usual protocol. Please see the accompanying data sheets. Findings for left hip scanning are T-score -2.6 with left femoral neck T-score -3 2. Prior examinati on September 2019 showed left hip T-score -2.8. Findings for lumbar spine scanning are T-score -2.8, prior examination of 2019 showed lumbar T-score -3.5. Left forearm scanning shows T-score -4.2, prior examination showed T-score -4.3. IMPRESSION: Measurements are consistent with osteoporosis according to the WHO criteria. The lateral vertebral scanogram shows no evidence of a vertebral compression fracture. RADIATION DOSE DELIVERED: Total DLP
== END ==
PROVIDERS: PCP Nurse Practitioner Family; Visit Provider Nurse Practitioner Family
DX: M81.0 Age-related osteoporosis without current pathological fracture (principal); Z13.820 Encounter for screening for osteoporosis
CPT/HCPCS: 77080

== ENCOUNTER 2022-04-08 16:00 | Outpatient (REF) | payer MEDICARE, SELFPAY ==
[2022-04-08 20:12] LABS: ALT 20 U/L (14-59); AST 17 U/L (15-37); Albumin 4.1 g/dL (3.4-5.0); Alkaline Phosphatase 44 U/L (46-116); BUN 20 mg/dL (7-18); Bilirubin, Total 0.8 mg/dL (0.2-1.0); CREATININE 0.8 mg/dL (0.55-1.02); Calcium 9.5 mg/dL (8.5-10.1); Calculated LDL 110 mg/dL (<100); Chloride 106 mmol/L (98-107); Cholesterol 233 mg/dL (<200); Estimated GFR 80.21 (mL/min/1.73m2); Glucose 83 mg/dL (74-106); HDL Cholesterol 113 mg/dL (40-60); Hemoglobin A1C 5.4 % (<5.7); Potassium 4.3 mmol/L (3.5-5.1); Sodium 143 mmol/L (136-145); Total Protein 7.2 g/dL (6.4-8.2); Triglyceride 53 mg/dL (<150)
[2022-04-08 20:34] LABS: Vitamin D 25 Total 28.1 ng/mL (30-100)
== END 2022-04-08 16:01 | disposition home or self-care (01) ==
LOC: NCHCN 16:00
PROVIDERS: PCP Nurse Practitioner Family; Visit Provider Nurse Practitioner Family
DX: R73.03 Prediabetes (principal); M81.0 Age-related osteoporosis without current pathological fracture; R79.89 Other specified abnormal findings of blood chemistry
CPT/HCPCS: 80053; 80061; 82306; 83036

== ENCOUNTER → 2022-08-13 09:02 | Outpatient (BNVA) | payer MEDICARE, SELFPAY | PROVIDERS: PCP Nurse Practitioner Family; Referring Provider Nurse Practitioner Family; Visit Provider Student in an Organized Health Care Education/Training Program | DX: M20.012 Mallet finger of left finger(s) (principal) | CPT/HCPCS: 99202 ==

== ENCOUNTER → 2022-10-01 09:56 | Outpatient (BNVA) | payer MEDICARE, SELFPAY | PROVIDERS: PCP Nurse Practitioner Family; Referring Provider Nurse Practitioner Family; Visit Provider Student in an Organized Health Care Education/Training Program | DX: M20.012 Mallet finger of left finger(s) (principal) | CPT/HCPCS: 99213 ==

== ENCOUNTER → 2022-10-29 00:50 | Outpatient (CLI) | payer MEDICARE, SELFPAY ==
--- NOTE | 2022-10-29 | ETT_ITS ---
APPROVED REPORT Exam: Exercise Treadmill Patient Location: Out-Patient Room/Bed: Stress Nurse: Corrine Bean RN Ordering Provider:CRISTIAN BASILIO, Contact Number: [phone] BMI: 21.20 Baseline Rhythm: Sinus Rhythm Indications: Chest pain Medical History Medical History: No significant medical history Cardiac Medications: None Allergies: NKA Cardiac Risk Factors: Family history, former smoker Previous Cardiac Procedures: None Pretest Chest Pain Characteristics: None Exercise History: Indeterminate Physical Disabilities: None Lung Sounds: Clear to auscultation Heart Sounds: Regular Stress Test Details Test: Exercise stress testing was performed using a Mahendra protocol. Rest Stress HR Resting HR Supine: 68 bpm Max Heart Rate (APMHR): 152 bpm Resting HR Standin bpm Target HR (85% APMHR): 129 bpm Max HR Achieved: 152 bpm % of APMHR: 100 Recovery HR: 73 bpm HR response to stress: Normal HR response to stress BP Resting BP Supine: 118/74 mmHg Resting BP Standin/78 mmHg Max BP: 128/70 mmHg Recovery BP: 108/64 mmHg BP response to stress: Normal blood pressure response to stress. ECG Resting ECG: Sinus Rhythm Ectopy: None Stress ECG: Sinus Tachycardia ST Change: No significant ST segment changes noted Arrhythmia: None Recovery ECG: Sinus Rhythm Recovery ST Change: No significant ST segment changes noted Recovery Arrhythmia: Occasional PAC's, couplet Clinical Reason for Termination: Target HR Achieved Stress Symptoms: None Exercise duration: 06 min59 sec Highest Stage Reached: Stage 2: 2.5 mph at 12% grade. Exercise capacity: 8.58 METs Angina Score: None Butler Treadmill Score: 6.4 Rate Pressure Product: [id number] Stress ECG Conclusion 1. Resting electrocardiogram was within normal limits 2. Patient exercised on the Mahendra protocol and completed a workload of 8.58 METS 3. Normal heart rate and blood pressure response to exercise. The patient achieved 100% of predicted heart rate for age 4. There was no electrocardiographic evidence of myocardial ischemia 5. There were no significant dysrhythmias Butler Treadmill Score is 6.4 which is Low risk. Stress Test Summary STAGE Time (mins) Speed (mph) Grade (%) HR BP SpO2 SYMPTOMS METS Supine 68 118/74 Standing 72 112/78 1 3 1.7 10 113 128/64 94 4.5 2 6 2.5 12 138 122/70 7 1 min recovery 122 128/70 3 min recovery 82 126/66 99 6 min recovery 73 108/64 99
== END ==
PROVIDERS: PCP Nurse Practitioner Family; Visit Provider Physician Assistant
DX: R07.9 Chest pain, unspecified (principal)
CPT/HCPCS: 93016; 93018; 93017

== ENCOUNTER 2023-05-31 18:06 | Outpatient (REF) | payer MEDICARE, SELFPAY ==
[2023-05-31 20:05] LABS: Absolute Basophil Count 0.08 10^3/uL (0.0-0.2); Absolute Eosinophil Count 0.05 10^3/uL (0.0-0.7); Absolute Lymphocyte Count 1.68 10^3/uL (1.2-3.4); Absolute Monocyte Count 0.36 10^3/uL (0.1-0.8); Basophils % 1.5; Eosinophils % 0.9; HCT 39.4 % (36.0-46.0); HGB 12.4 g/dL (11.2-15.7); Lymphocytes % 31.3; MCH 29.2 pg (27.0-33.0); MCHC 31.5 % (32.0-36.0); MCV 93 fL (80-95); MPV 10.4 fL (8.0-11.0); Monocytes % 6.7; Neutrophils % 59.6; Platelet Count 359 10^3/uL (130-400); RBC 4.24 10^6/uL (3.93-5.22); RDW 11.9 % (11.7-14.6); RDW-SD 40.5 fL; WBC 5.37 10^3/uL (4.4-10.8)
[2023-05-31 20:36] LABS: Calculated LDL 99 mg/dL (<100); Cholesterol 211 mg/dL (<200); HDL Cholesterol 102 mg/dL (40-60); Triglyceride 51 mg/dL (<150)
[2023-05-31 20:39] LABS: Vitamin D 25 Total 42.9 ng/mL (30-100)
[2023-05-31 21:00] LABS: Hemoglobin A1C 5.8 % (<5.7)
[2023-06-01 18:35] LABS: Hepatitis C Ab w Rflx HCV PCR Negative (Negative)
== END 2023-05-31 18:07 | disposition home or self-care (01) ==
LOC: NCHCN 18:06
PROVIDERS: PCP Nurse Practitioner Family; Visit Provider Nurse Practitioner Family
DX: Z13.6 Encounter for screening for cardiovascular disorders (principal); Z13.1 Encounter for screening for diabetes mellitus; Z00.00 Encounter for general adult medical examination without abnormal findings; R53.83 Other fatigue
CPT/HCPCS: 80061; 82306; 86803; 83036; 84439; 84443; 85025

== ENCOUNTER 2023-10-14 02:32 | Outpatient (CLI) | payer MEDICARE, SELFPAY ==
--- NOTE | 2023-10-14 | DI.MAMMO_ITS ---
Exam(s) MAMMO SCREENING EXAM: MAMMO SCREENING CLINICAL HISTORY: SCREENING, Z12.31 TECHNIQUE: Mammograms were interpreted according to the usual protocol including computer analysis w [employer] CAD system, tomosynthesis and C-view imaging. COMPARISON: 2015 through 2021 FINDINGS: The breasts are composed of scattered fibroglandular densities, Breast Density category B. No suspicious masses or suspicious microcalcifications are seen. No skin thickening or abnormal axillary lymph nodes are seen. There has been no significant change from prior exams. IMPRESSION: BI-RADS Category 1, Negative mammogram Yearly screening mammography is recommended. Breast Density - Category B, scattered fibroglandular densities. A negative radiographic report should not delay biopsy if a dominant or clinically suspicious mass is present. Up to ten percent of cancers are not identified on mammography. A negative report may reinforce clinical impression. Adenosis and dense breasts may obscure an underlying neoplasm. False positive reports average 6 to 10%. Patient will receive a letter notifying them of these results.
--- NOTE | 2023-10-14 | DI.DEXA_ITS ---
Exam(s) XR DEXA BONE DENSITY W/WO CHRISTA EXAM: XR DEXA BONE DENSITY W/WO CHRISTA CLINICAL HISTORY: SCREENING FOR OSTEOPOROSIS, Z78.0 TECHNIQUE: HoloMyEveTab Horizon C densitometer analysis of left hip, lumbar spine and left forearm. Lat eral survey image of the thoracic and lumbar spine. COMPARISON: CR XR DEXA BONE DENSITY W/WO CHRISTA from 09/28/2019 CR XR DEXA BONE DENSITY W/WO CHRISTA from 10/09/2021 FINDINGS: Lateral view of the thoracic and lumbar spine shows no evidence of compression fractures. Bone mineral density measurements of the lumbar spine correspond to a total T-score of -3.3, in the osteoporotic range. This represents a 5.4 percent decrease from 2021 and a 7.5 percent increase from 2019 Bone mineral density measurements of the left hip correspond to a total T-score of -2.6. This is no t significantly changed from 2021 are presents a 5.1 percent increase from 2019. The femoral neck T- score is -3.3, in the osteoporotic range.. Theleft forearm bone mineral density measurements correspond to a T-score of the distal 3rd of -4.2, in the osteoporotic range. This is not significantly changed from the prior exams.. IMPRESSION: Osteoporosis of the spine, forearm and wrist.
== END 2023-10-14 02:52 ==
LOC: DI 02:32
PROVIDERS: Visit Provider Nurse Practitioner Family
DX: Z78.0 Asymptomatic menopausal state (principal); Z12.31 Encounter for screening mammogram for malignant neoplasm of breast; M80.08XA Age-related osteoporosis with current pathological fracture, vertebra(e), initial encounter for fracture
CPT/HCPCS: 77063; 77067; 77080

== ENCOUNTER 2023-12-08 15:22 | Outpatient (REF) | payer MEDICARE, SELFPAY ==
[2023-12-08 20:54] LABS: Abs Immature Grans 0.01 10^3/uL (0.0-0.06); Absolute Basophil Count 0.08 10^3/uL (0.0-0.2); Absolute Eosinophil Count 0.09 10^3/uL (0.0-0.7); Absolute Lymphocyte Count 1.73 10^3/uL (1.2-3.4); Absolute Monocyte Count 0.45 10^3/uL (0.1-0.8); Absolute Neutrophil Count 4.57 10^3/uL (1.2-6.7); Basophils % 1.2 %; Eosinophils % 1.3 %; HCT 37.1 % (36.0-46.0); HGB 11.9 g/dL (11.2-15.7); Immature Grans % 0.1 %; MCH 29.2 pg (27.0-33.0); MCHC 32.1 % (32.0-36.0); MCV 91 fL (80-95); MPV 10.4 fL (8.0-11.0); Monocytes % 6.5 %; Neutrophils % 65.9 %; Platelet Count 350 10^3/uL (130-400); RBC 4.08 10^6/uL (3.93-5.22); RDW 12.5 % (11.7-14.6); RDW-SD 41.2 fL; WBC 6.93 10^3/uL (4.4-10.8)
[2023-12-08 21:12] LABS: BUN 20 mg/dL (7-18); CREATININE 0.8 mg/dL (0.55-1.02); Chloride 108 mmol/L (98-107); Estimated GFR 79.71 (mL/min/1.73m2); Glucose 95 mg/dL (74-106); Potassium 4.3 mmol/L (3.5-5.1); Sodium 145 mmol/L (136-145); TSH (W/Ref FT4) 0.59 uIU/mL (0.36-3.74)
== END 2023-12-08 15:23 | disposition home or self-care (01) ==
LOC: LBN 15:22
PROVIDERS: Visit Provider Physician Assistant Medical
DX: R42 Dizziness and giddiness (principal)
CPT/HCPCS: 80048; 84443; 85025

== ENCOUNTER 2024-03-24 14:09 | Outpatient (CLI) | payer MEDICARE, SELFPAY ==
--- NOTE | 2024-03-24 | DI.RAD_ITS ---
Exam(s) XR KNEE RT 3V AP,LAT,CASSIDY EXAM: XR KNEE RT 3V AP,LAT,CASSIDY CLINICAL HISTORY: PAIN OF RT KNEE JOINT, M25.561. TECHNIQUE: 2D digital imaging was performed. Three views. COMPARISON: No exams were available for comparison FINDINGS: Exam is mildly limited by overlying clothing. BONES: No acute fracture is present. No bony destructive lesion is seen. JOINTS: The knee is normally aligned. No joint effusion is seen. Moderate narrowing of the lateral fe moral tibial joint. Medial femoral tibial joint and patellofemoral joint spaces are maintained. Per iarticular spurring SOFT TISSUE: Normal. 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 DATA REPOSITORY: RADIATION DOSE DELIVERED:
== END 2024-03-24 14:29 ==
PROVIDERS: Visit Provider Nurse Practitioner Family
DX: M17.11 Unilateral primary osteoarthritis, right knee (principal)
CPT/HCPCS: 73562